=== PATIENT | female | born 1940 | race Caucasian/White ===

== ENCOUNTER 2024-06-19 00:36 | Observation (INO) ==
--- NOTE | 2024-06-19 01:04 | Emergency Department Note ---
History of Present Illness General Chief complaint: TIA Symptoms Stated complaint: FELL, SPEECH ISSUE, CONFUSED, HEADACHE RT SIDE TEM Time Seen by Provider: 06/19/24 00:48 History of Present Illness Maximum Pain Intensity: 3 This is an 83-year-old female presenting to the emergency department accompanied by family for evaluation of altered mental status. Patient is at bedside and provides most of the history. Yesterday the patient had a fall between the wall and her toilet at home. The patient did strike her head and subsequently had evaluation at [facility]. Patient reportedly had blood work, urine, CT scan, and MRI, all of which were essentially normal. The patient did have elevated blood sugar over 200 which was new. The patient has reportedly been persistently confused per family. She has been speaking to people that are not in the room, and having conversations like she is on a telephone, when she is not. Patient has not had difficulty moving arms or legs. She seems to have difficulty seeing to the left lateral visual field according to her . She has not had any chest pain, chest tightness, or shortness of breath. She is not on blood thinners. Family elected to come to this facility today as symptoms persist, and they did not get true answers yesterday. Patient is able to answer questions fully and appropriately. She rates her discomfort a 3/10. She is not eating or drinking well the past few days. Home Medications Medication Instructions Recorded Confirmed Type ascorbic acid (vitamin C) 500 mg 500 mg PO DAILY 06/19/24 06/19/24 History chewable tablet aspirin 81 mg tablet,delayed 81 mg PO DAILY 06/19/24 06/19/24 History release denosumab 60 mg/mL subcutaneous See Rx Instructions .Route .COMPLEX 06/19/24 06/19/24 History syringe furosemide 20 mg tablet 20 mg PO DAILY PRN swelling 06/19/24 06/19/24 History lisinopril 20 mg tablet 20 mg PO BID 06/19/24 06/19/24 History simvastatin 10 mg tablet 10 mg PO PM 06/19/24 06/19/24 History valacyclovir 500 mg tablet 500 mg PO BID 06/19/24 06/19/24 History Allergies Allergy/AdvReac Type Severity Reaction Status Date / Time latex Allergy Rash Verified 06/19/24 05:13 Past Med/Surg History Problem List (Updated 06/19/24 @ 20:52 by Ellis Jha PA-C) Confusion (Acute) Altered mental status (Acute) Osteoporosis Hyperlipidemia Surgical History (Updated 06/19/24 @ 03:00 by Ellis Jha PA-C) Hx of tonsillectomy S/P DIVINA-BSO History of cholecystectomy History of cataract surgery History of colonoscopy Social History Smoking Status: Never smoker Second Hand Exposure: No; Do You Dip or Chew Tobacco: No; Tobacco Cessation Education Requested by Patient: No Hx Alcohol Use: No Hx Substance Use: No Preferred Language: [place] Supervisor Required: No Beliefs That Will Affect Care: None Current Living Situation: Alone Other Information That Helps Us Care for You: No Feels Safe at Home: Yes Safety Concerns: Feels Safe At This Time Review of Systems A total of 10 systems reviewed and were otherwise negative Physical Exam Vital Signs Vital Signs - 24 hr 06/19/24 00:42 06/19/24 01:02 06/19/24 01:03 Temperature 36.4 C L Temperature Source Temporal Artery Scan Pulse Rate 80 69 69 Pulse Rate from SpO2 Sensor 69 Respiratory Rate 18 22 Respiratory Effort / Characteristics Non-Labored Spontaneous Respiratory Depth Normal Blood Pressure 128/90 152/79 H Blood Pressure [Left Arm] Blood Pressure Mean 102 123 Blood Pressure Mean [Left Arm] Pulse Oximetry 99 98 Oxygen Delivery Method Room Air Sepsis Recent Fever Within 48 Hours No Sepsis New/Unexplained Change in Mental Status No Sepsis Action Taken by Nursing No Action Required 06/19/24 02:00 06/19/24 02:30 06/19/24 02:34 Temperature Temperature Source Pulse Rate 65 77 80 Pulse Rate from SpO2 Sensor 65 77 Respiratory Rate 20 20 20 Respiratory Effort / Characteristics Respiratory Depth Blood Pressure 156/81 H 167/81 H 184/82 H Blood Pressure [Left Arm] Blood Pressure Mean 131 112 129 Blood Pressure Mean [Left Arm] Pulse Oximetry 98 98 98 Oxygen Delivery Method Sepsis Recent Fever Within 48 Hours Sepsis New/Unexplained Change in Mental Status Sepsis Action Taken by Nursing 06/19/24 02:34 06/19/24 02:34 06/19/24 02:34 Temperature Temperature Source Pulse Rate Pulse Rate from SpO2 Sensor Respiratory Rate Respiratory Effort / Characteristics Respiratory Depth Blood Pressure 184/82 H 184/82 H 184/82 H Blood Pressure [Left Arm] Blood Pressure Mean 129 129 129 Blood Pressure Mean [Left Arm] Pulse Oximetry Oxygen Delivery Method Sepsis Recent Fever Within 48 Hours Sepsis New/Unexplained Change in Mental Status Sepsis Action Taken by Nursing 06/19/24 02:36 06/19/24 03:00 06/19/24 03:02 Temperature Temperature Source Pulse Rate 74 77 Pulse Rate from SpO2 Sensor 74 77 Respiratory Rate 20 20 Respiratory Effort / Characteristics Respiratory Depth Blood Pressure 192/97 H Blood Pressure [Left Arm] 184/66 H Blood Pressure Mean 128 Blood Pressure Mean [Left Arm] 105 Pulse Oximetry 97 99 Oxygen Delivery Method Sepsis Recent Fever Within 48 Hours Sepsis New/Unexplained Change in Mental Status Sepsis Action Taken by Nursing 06/19/24 03:30 06/19/24 04:00 06/19/24 04:30 Temperature Temperature Source Pulse Rate 71 74 70 Pulse Rate from SpO2 Sensor 71 74 Respiratory Rate 18 22 20 Respiratory Effort / Characteristics Respiratory Depth Blood Pressure 180/93 H 179/90 H 170/91 H Blood Pressure [Left Arm] Blood Pressure Mean 122 119 122 Blood Pressure Mean [Left Arm] Pulse Oximetry 96 97 98 Oxygen Delivery Method Sepsis Recent Fever Within 48 Hours Sepsis New/Unexplained Change in Mental Status Sepsis Action Taken by Nursing 06/19/24 04:58 06/19/24 05:00 06/19/24 06:00 Temperature Temperature Source Pulse Rate 68 69 73 Pulse Rate from SpO2 Sensor Respiratory Rate 21 23 Respiratory Effort / Characteristics Respiratory Depth Blood Pressure 177/94 H 171/81 H Blood Pressure [Left Arm] Blood Pressure Mean 142 134 Blood Pressure Mean [Left Arm] Pulse Oximetry 96 98 Oxygen Delivery Method Sepsis Recent Fever Within 48 Hours Sepsis New/Unexplained Change in Mental Status Sepsis Action Taken by Nursing VITALS: Vitals are noted on the nurse's note and reviewed by myself. Vital signs stable. GENERAL: Well-developed, well-nourished, white female, who is in no acute distress and resting comfortably. Patient is cooperative with the examination. HEAD: Normocephalic atraumatic. EYES: Pupils equal round and reactive to light and accommodation. Conjunctivae without injection, sclerae without icterus. Extraocular movements intact. NOSE: Patent, turbinates without inflammation or discharge. MOUTH: Mucous membranes moist. Tonsils are not enlarged. Pharynx without erythema, blood, or exudate. Uvula midline. Airway patent. NECK: Supple without nuchal rigidity. No lymphadenopathy. No thyromegaly. Cervical spine is nontender. HEART: Regular rate and rhythm without murmurs gallops or rubs. LUNGS: Clear to auscultation bilaterally without wheezes, rales or rhonchi. No retractions or accessory muscle use. ABDOMEN: Positive normal bowel sounds x 4. Soft, nontender, without masses or organomegaly. No guarding or rebound tenderness. MUSCULOSKELETAL: No muscle atrophy, erythema, or edema noted. Full range of motion in all extremities. NEURO: Patient was alert and oriented to person place and time. CN II through XII grossly intact. GCS 15. Stroke scale 0. Course Administered Medications Aspirin (Aspirin 81 Mg Ectab) 81 mg PO DAILY LORELEI Stop: 07/19/24 08:59 Last Admin: 06/19/24 09:04 Dose: 81 mg Documented By: YUE Heparin Sodium (Porcine) (Heparin Sod 5,000 Unit/0.5 Ml Vial) 5,000 units SQ Q8 LORELEI Stop: 07/19/24 13:59 Last Admin: 06/19/24 13:39 Dose: 5,000 units Documented By: YUE Potassium Chloride/Sodium Chloride (Normal Saline W/20 Meq Kcl) 20 meq in 1,000 mls @ 60 mls/hr IV .[id number] ONE Stop: 06/19/24 22:55 Last Admin: 06/19/24 06:41 Dose: 60 mls/hr Documented By: ZOILA Levothyroxine Sodium (Levothyroxine Sodium 25 Mcg Tablet) 25 mcg PO DAILYBB LORELEI Stop: 07/19/24 06:29 Last Admin: 06/19/24 07:28 Dose: 25 mcg Documented By: GABRIEL Discontinued Medications Amlodipine Besylate (Amlodipine Besylate 5 Mg Tab) 2.5 mg PO NOW ONE Stop: 06/19/24 15:38 Last Admin: 06/19/24 17:02 Dose: 2.5 mg Documented By: YUE Gadobutrol (Gadobutrol 7.5ml Vial) 3.5 ml IV ONCE ONE Stop: 06/19/24 12:50 Last Admin: 06/19/24 12:49 Dose: 3.5 ml Documented By: BLAKE Sodium Chloride (Nss) 1,000 mls @ 999 mls/hr IV .Q1H1M ONE Stop: 06/19/24 02:55 Last Infusion: 06/19/24 03:05 Dose: Infused Documented By: Admin: 06/19/24 01:59 Dose: 999 mls/hr Documented By: ZOILA Ceftriaxone Sodium (Rocephin) 1,000 mg in 50 mls @ 100 mls/hr IV NOW STA Stop: 06/19/24 06:38 Last Infusion: 06/19/24 06:57 Dose: Infused Documented By: Admin: 06/19/24 06:16 Dose: 100 mls/hr Documented By: ZOILA Ioversol (Optiray 320 125ml) 120 ml IV ONCE ONE Stop: 06/19/24 02:19 Last Admin: 06/19/24 02:13 Dose: 120 ml Documented By: JESSICA Lisinopril (Lisinopril 20 Mg Tab) 20 mg PO NOW STA Stop: 06/19/24 07:39 Last Admin: 06/19/24 07:53 Dose: 20 mg Documented By: GABRIEL Valacyclovir HCl (Valacyclovir Hcl 500 Mg Tablet) 500 mg PO BID LORELEI Stop: 07/19/24 08:59 Last Admin: 06/19/24 09:04 Dose: 500 mg Documented By: YUE Medical Decision Making Differential Diagnosis The differential diagnosis includes, but is not limited to: acute intracranial bleed, meningitis, encephalitis, mass or mass effect, sinusitis, infection, tumor, headache, temporal arteritis and carbon monoxide exposure, and migraine. Laboratory Data 06/19/24 00:59 06/19/24 00:59 Lab Results 06/19/24 06/19/24 06/19/24 Range/Units 00:59 01:08 01:20 WBC 6.26 (4.8-10.8) K/ul RBC 4.46 (4.20-5.40) M/uL Hgb 12.6 (12.0-16.0) g/dl Hct 39.0 (37.0-47.0) % MCV 87.4 (80.0-100.0) fL MCH 28.3 (25.0-34.0) pg MCHC 32.3 (32.0-36.0) g/dL RDW Std Deviation 47.4 H (36.4-46.3) fL RDW Coeff of [place] 14.7 H (11.5-14.5) % Plt Count 286 (130-400) K/uL MPV 9.5 (9.4-12.4) fL Immature Gran % (Auto) 0.3 % Neut % (Auto) 61.9 % Lymph % (Auto) 21.4 % [place] % (Auto) 15.2 % Eos % (Auto) 0.6 % Baso % (Auto) 0.6 % Neut # (Auto) 3.87 (1.40-6.50) K/uL Lymph # (Auto) 1.34 (1.20-3.40) K/uL [place] # (Auto) 0.95 H (0.11-0.59) K/uL Eos # (Auto) 0.04 (0.00-0.50) K/uL Baso # (Auto) 0.04 (0.00-0.20) K/uL Immature Gran # (Auto) 0.02 (0.01-0.20) K/uL PT 10.3 (9.0-12.0) Seconds INR 0.9 (0.9-1.1) APTT 25 (21-31) Seconds PTT Ratio 0.9 Sodium 137 (136-145) mmol/L Potassium 3.8 (3.5-5.1) mmol/L Chloride 100 (98-107) mmol/L Carbon Dioxide 27 (21-32) mmol/L Anion Gap 10 (3-11) BUN 27 H (6-23) mg/dl Creatinine 1.20 (0.6-1.2) mg/dl Est Cr Clr Drug Dosing 18.1 ml/min eGFR 45.19 BUN/Creatinine Ratio 22.5 H (10-20) Glucose 90 (70-99(Fasting)) mg/dl Calcium 9.9 (8.6-10.3) mg/dl Magnesium 2.0 (1.7-2.4) mg/dl Total Bilirubin 0.5 (0.2-1.0) mg/dl AST 39 (13-39) U/L ALT 24 (7-52) U/L Alkaline Phosphatase 69 (34-104) U/L Total Creatine Kinase 830 H (26-192) U/L Troponin I High Sens 14.7 H (0-14) pg/ml Total Protein 6.9 (6.0-8.3) gm/dl Albumin 4.1 (3.4-5.0) gm/dl Globulin 2.8 (2.5-4.0) gm/dl Albumin/Globulin Ratio 1.5 (0.9-2) TSH 10.582 H (0.300-4.500) uIu/ml Free T4 0.76 (0.61-1.60) ng/dl Urine Color Urine Appearance (Clear) Urine pH (4.5-7.5) Ur Specific [place] (1.000-1.030) Urine Protein (Negative) Urine Glucose (UA) (Negative) Urine Ketones (Negative) Urine Blood (Negative) Urine Nitrite (Negative) Urine Bilirubin (Negative) Urine Urobilinogen (Negative) Ur Leukocyte Esterase (Negative) Urine WBC (Auto) (0-5) /hpf Urine RBC (Auto) (0-2) /hpf U Hyaline Cast (Auto) (0-2) /lpf U Epithel Cells (Auto) (0-2) /hpf Urine Bacteria (Auto) (None Seen) Ethyl Alcohol mg/dL < 10.0 (<10.0) mg/dl Adenovirus (PCR) Not Detected (NotDetected) B. pertussis DNA (PCR) Not Detected (NotDetected) B.parapertussis DNA PCR Not Detected (NotDetected) Lyme Disease Screen Negative (Negative) C. pneumoniae DNA (PCR) Not Detected (NotDetected) Coronavirus OC43 (PCR) Not Detected (NotDetected) Coronavirus HKU1 (PCR) Not Detected (NotDetected) Coronavirus 229E (PCR) Not Detected (NotDetected) SARS-CoV-2 (PCR) Not Detected (NotDetected) Coronavirus NL63 (PCR) Not Detected (NotDetected) Human Metapneumovir PCR Not Detected (NotDetected) Influenza Type A (PCR) Not Detected (NotDetected) Influenza Type B (PCR) Not Detected (NotDetected) M. pneumoniae (PCR) Not Detected (NotDetected) Parainfluenza 1 (PCR) Not Detected (NotDetected) Parainfluenza 2 (PCR) Not Detected (NotDetected) Parainfluenza 3 (PCR) Not Detected (NotDetected) Parainfluenza 4 (PCR) Not Detected (NotDetected) RSV (PCR) Not Detected (NotDetected) Entero/Rhino (PCR) Not Detected (NotDetected) 06/19/24 Range/Units 02:25 WBC (4.8-10.8) K/ul RBC (4.20-5.40) M/uL Hgb (12.0-16.0) g/dl Hct (37.0-47.0) % MCV (80.0-100.0) fL MCH (25.0-34.0) pg MCHC (32.0-36.0) g/dL RDW Std Deviation (36.4-46.3) fL RDW Coeff of [place] (11.5-14.5) % Plt Count (130-400) K/uL MPV (9.4-12.4) fL Immature Gran % (Auto) % Neut % (Auto) % Lymph % (Auto) % [place] % (Auto) % Eos % (Auto) % Baso % (Auto) % Neut # (Auto) (1.40-6.50) K/uL Lymph # (Auto) (1.20-3.40) K/uL [place] # (Auto) (0.11-0.59) K/uL Eos # (Auto) (0.00-0.50) K/uL Baso # (Auto) (0.00-0.20) K/uL Immature Gran # (Auto) (0.01-0.20) K/uL PT (9.0-12.0) Seconds INR (0.9-1.1) APTT (21-31) Seconds PTT Ratio Sodium (136-145) mmol/L Potassium (3.5-5.1) mmol/L Chloride (98-107) mmol/L Carbon Dioxide (21-32) mmol/L Anion Gap (3-11) BUN (6-23) mg/dl Creatinine (0.6-1.2) mg/dl Est Cr Clr Drug Dosing ml/min eGFR BUN/Creatinine Ratio (10-20) Glucose (70-99(Fasting)) mg/dl Calcium (8.6-10.3) mg/dl Magnesium (1.7-2.4) mg/dl Total Bilirubin (0.2-1.0) mg/dl AST (13-39) U/L ALT (7-52) U/L Alkaline Phosphatase (34-104) U/L Total Creatine Kinase (26-192) U/L Troponin I High Sens (0-14) pg/ml Total Protein (6.0-8.3) gm/dl Albumin (3.4-5.0) gm/dl Globulin (2.5-4.0) gm/dl Albumin/Globulin Ratio (0.9-2) TSH (0.300-4.500) uIu/ml Free T4 (0.61-1.60) ng/dl Urine Color Yellow Urine Appearance Clear (Clear) Urine pH 5.5 (4.5-7.5) Ur Specific [place] 1.037 H (1.000-1.030) Urine Protein Trace H (Negative) Urine Glucose (UA) Negative (Negative) Urine Ketones 1+ H (Negative) Urine Blood Negative (Negative) Urine Nitrite Negative (Negative) Urine Bilirubin Negative (Negative) Urine Urobilinogen Negative (Negative) Ur Leukocyte Esterase 1+ H (Negative) Urine WBC (Auto) 11-20 H (0-5) /hpf Urine RBC (Auto) 0-2 (0-2) /hpf U Hyaline Cast (Auto) 11-20 H (0-2) /lpf U Epithel Cells (Auto) 0-2 (0-2) /hpf Urine Bacteria (Auto) None Seen (None Seen) Ethyl Alcohol mg/dL (<10.0) mg/dl Adenovirus (PCR) (NotDetected) B. pertussis DNA (PCR) (NotDetected) B.parapertussis DNA PCR (NotDetected) Lyme Disease Screen (Negative) C. pneumoniae DNA (PCR) (NotDetected) Coronavirus OC43 (PCR) (NotDetected) Coronavirus HKU1 (PCR) (NotDetected) Coronavirus 229E (PCR) (NotDetected) SARS-CoV-2 (PCR) (NotDetected) Coronavirus NL63 (PCR) (NotDetected) Human Metapneumovir PCR (NotDetected) Influenza Type A (PCR) (NotDetected) Influenza Type B (PCR) (NotDetected) M. pneumoniae (PCR) (NotDetected) Parainfluenza 1 (PCR) (NotDetected) Parainfluenza 2 (PCR) (NotDetected) Parainfluenza 3 (PCR) (NotDetected) Parainfluenza 4 (PCR) (NotDetected) RSV (PCR) (NotDetected) Entero/Rhino (PCR) (NotDetected) Imaging Data Radiologist's Impression: Head CT 06/19/24 00:59 EXAM: CT head/brain wo con CLINICAL HISTORY: fall, headache , confusion , difficulty speaking TECHNIQUE: An axial non-contrast CT scan of the brain was performed from the skull base to the high parietal region. One of the following dose reduction techniques was utilized for this exam: Automated exposure control, adjustment of the mA and/or kV according to patient size, and use of iterative reconstruction. COMPARISON: None. FINDINGS: Prominent ventricular system and extra-axial CSF spaces are suggestive of age-related involutional changes. There are scattered periventricular hypodensities of chronic microvascular ischemic changes. The duong-white matter differentiation is preserved. No space-occupying lesions. No midline shifts or deformity. No intracerebral or extra axial hematoma. Unremarkable CT appearance of the posterior fossa structures namely the cerebellar hemispheres, brainstem, and cerebellar peduncles. The IACs are unremarkable. The cerebello-pontine angles are clear. The pituitary gland, the pineal gland, and the optic chiasm is unremarkable. The osseous structures in the skull base are unremarkable. No definite calvarium fractures. Scanned paranasal sinuses show bilateral maxillary sinuses are clear. IMPRESSION: 1. No evidence of established infarction, or intracranial or extracranial hemorrhage. 2. Age-related brain involutional changes. 3. Chronic microvascular ischemic changes. 4. Early changes of a stroke may not be detected on a CT scan. If strong clinical suspicion of stroke then suggest MRI with diffusion-weighted imaging. Electronically signed by Laine Vasquez 06-19-2024 03:08 AM Head CTA 06/19/24 00:59 EXAM: CT angio head w con CLINICAL HISTORY: fall, headache , confusion , difficulty speaking , 120 ml optiray 320 TECHNIQUE: Axial CT angiography of the head was performed with IV contrast and sagittal and coronal reconstructions. One of these 3D techniques was utilized: Maximum Intensity Pixel (MIP), 3D Reconstructed Images, Volume Rendered Images, Surface Shaded Rendering. One of the following dose reduction techniques were utilized for this exam: Automated exposure control, adjustment of the mA and/or kV according to patient size, and use of iterative reconstruction. 120 ml optiray 320 was given as an IV contrast. COMPARISON: None. FINDINGS: Intracranial Arteries: Few eccentric non-stenotic calcified plaques are noted in the cavernous segments of both internal carotid arteries bilaterally. Otherwise, the intracranial portions of the internal carotid arteries, anterior cerebral arteries, middle cerebral arteries, posterior cerebral arteries, basilar artery, and vertebral arteries are well-opacified. Persistent origin of the posterior cerebral arteries (variant). No evidence of aneurysm, stenosis, or occlusion. [place]: The [place] is complete. Normal caliber of the communicating arteries. No vascular malformations or aneurysms. Venous Structures: Normal opacification of the major dural venous sinuses. No evidence of venous sinus thrombosis. IMPRESSION: Few eccentric non-stenotic calcified plaques are noted in the cavernous segments of both internal carotid arteries bilaterally. Otherwise, unremarkable study. No evidence of significant vascular abnormalities. Electronically signed by Laine Vasquez 06-19-2024 03:09 AM Neck CTA 06/19/24 00:59 EXAM: CT angio neck with con CLINICAL HISTORY: fall, headache , confusion , difficulty speaking , 120 ml optiray 320 TECHNIQUE: Contrast-enhanced thin slice CT angiography scan of the carotid vessels/ neck was performed with 120 ml optiray 320/ml intravenous contrast. Contiguous axial images were obtained. Reformatted coronal and sagittal images were also reviewed. One of the following dose reduction techniques was utilized for this exam.Automated exposure control, adjustment of the mA and/or kV according to patient size, and use of iterative reconstruction. One of these 3D techniques was utilized: Maximum Intensity Pixel (MIP), 3D Reconstructed Images, Volume Rendered Images, Surface Shaded Rendering. COMPARISON: None. FINDINGS: Mild diffuse atherosclerotic changes are evidenced with intimal thickening and scattered calcified atheromatous plaques. Patent aortic arch and its main branches with no tight stenotic/ occlusive lesions. Eccentric, predominantly calcific atheromatous changes are seen in bilateral carotid bulbs with extension to the proximal cervical internal carotid artery on the left side, causing about 20-30% stenosis. The rest of the common carotid, internal, and external carotid arteries are well opacified with no significant stenotic or occlusive lesions. Few calcified atheromatous plaques are seen in the aortic arch and proximal segments of bilateral subclavian arteries close to the origin of the vertebral arteries, not causing any significant luminal stenosis. No aneurysmal changes or dissections. No vascular malformations. Vertebral arteries are well opacified. Slightly hypoplastic left vertebral artery. Jugular veins are well opacified. Dominant right one. Scanned lung apices show apical fibrosis/scarring. Thyroid gland small hypodense nodules were seen. Need sonographic correlation. IMPRESSION: 1. Mild diffuse atherosclerotic changes. 2. Eccentric, predominantly calcific atheromatous changes are seen in bilateral carotid bulbs with extension to the proximal cervical internal carotid artery on the left side, causing about 20-30% stenosis. Electronically signed by Laine Vasquez 06-19-2024 03:12 AM MDM Narrative Physical exam and history were performed. Nursing notes, EMR, and Medication List were personally reviewed. No social concerns were identified as barriers to patients care. Patient appears to have several symptoms bring her to the ER. Many of these do seem strokelike, however by history the patient has had CTs and MRI in the past 24 hours. Case management and statistical secretary were involved in care, and records were requested from [facility]. On presentation the patient does not appear toxic. She is answering questions appropriately. Stroke scale 0. IV access was established and labs were obtained. Based on patient's symptoms CT scans were performed. Case was discussed with my attending who remained involved in care and decision making. Patient's blood work is as above and was reviewed. She does not have a significantly elevated white blood cell count, gross anemia, bandemia, or significant electrolyte imbalance. CK is elevated at 830 which may represent some element of rhabdo. Troponin is also slightly elevated at 14.7. TSH is 10.5. Urine without distinct evidence of infection and cultures pending. Bio fire and alcohol are both negative. CT scans were performed and reviewed by myself and radiology showing no acute process to account for the patient's symptoms. While the patient was being evaluated in the ER she had 3 distinct episodes where she may have had absent seizure-like activity. The patient essentially had 10-second periods where she would stop talking and look off into the distance. She would slowly recover from this, and return to normal. This does seem to correlate with what her has been experiencing as well. Overall the patient does not appear well for discharge home. Her symptoms are quite atypical and likely require further evaluation. I did ultimately get [facility] records, which essentially reflects what was stated by the patient's . These were added to the chart. The patient requires escalation of care, and the case was discussed with the on-call hospitalist. Please see their dictation for further patient course, plan, and disposition. The chart was completed utilizing [employer] Speech Voice Recognition Software. Grammatical errors, random word insertions, pronoun errors, and incomplete sentences are an occasional consequence of this system due to software limitations, ambient noise, and hardware issues. Any formal questions or concerns about the content, text, or information contained within the body of this dictation should be directly addressed to the provider for clarification. Impression & Plan Altered mental status, Confusion Discharge Plan Visit Data Chief Complaint: TIA Symptoms Stated Complaint: FELL, SPEECH ISSUE, CONFUSED, HEADACHE RT SIDE TEM ED Provider: Tanika Tyler ED Midlevel Provider: Ellis Jha Discharge Problem: Altered mental status, Confusion Patient Disposition: Admitted As Inpatient Discharge Instructions Interventions: ED Discharge Assessment Last Done: 06/19/24 08:18
[2024-06-19 01:21] LABS: Basophils # (auto) 0.04 K/uL (0.00-0.20); Basophils % (auto) 0.6 %; Eosinophils # (auto) 0.04 K/uL (0.00-0.50); Eosinophils % (auto) 0.6 %; Hemoglobin 12.6 g/dl (12.0-16.0); Immature Granulocytes # (auto) 0.02 K/uL (0.01-0.20); Immature Granulocytes % (auto) 0.3 %; Lymphocytes # (auto) 1.34 K/uL (1.20-3.40); Lymphocytes % (auto) 21.4 %; Mean Corpuscular Hemoglobin 28.3 pg (25.0-34.0); Mean Corpuscular Hgb Conc 32.3 g/dL (32.0-36.0); Mean Corpuscular Volume 87.4 fL (80.0-100.0); Mean Platelet Volume 9.5 fL (9.4-12.4); Monocytes # (auto) 0.95 K/uL (0.11-0.59); Monocytes % (auto) 15.2 %; Neutrophils # (auto) 3.87 K/uL (1.40-6.50); Neutrophils % (auto) 61.9 %; Platelet Count 286 K/uL (130-400); RDW Coefficient of Variation 14.7 % (11.5-14.5); RDW Standard Deviation 47.4 fL (36.4-46.3); Red Blood Count 4.46 M/uL (4.20-5.40); White Blood Count 6.26 K/ul (4.8-10.8)
[2024-06-19 01:44] LABS: Albumin Globulin Ratio 1.5 (0.9-2); Albumin Level 4.1 gm/dl (3.4-5.0); BUN Creatinine Ratio 22.5 (10-20); Bilirubin,Total 0.5 mg/dl (0.2-1.0); Calcium 9.9 mg/dl (8.6-10.3); Creatinine Clr Calc Pharmacy 18.1 ml/min; Globulin 2.8 gm/dl (2.5-4.0); Potassium 3.8 mmol/L (3.5-5.1); Total Protein 6.9 gm/dl (6.0-8.3)
[2024-06-19 01:48] LABS: INR 0.9 (0.9-1.1); Partial Thromboplastin Ratio 0.9; Partial Thromboplastin Time 25 Seconds (21-31); Prothrombin Time 10.3 Seconds (9.0-12.0)
[2024-06-19 01:51] LABS: Troponin I High Sensitivity 14.7 pg/ml (0-14)
[2024-06-19] MEDS: SODIUM CHLORIDE 0.9% 1,000 ML IV ONE (01:59)
[2024-06-19 02:01] LABS: Thyroid Stimulating Hormone 10.582 uIu/ml (0.300-4.500)
[2024-06-19] MEDS: OPTIRAY 320 125ml IV ONE (02:13)
[2024-06-19 02:22] LABS: Adenovirus PCR Not Detected (NotDetected); Bordetella parapertussis PCR Not Detected (NotDetected); Bordetella pertussis PCR Not Detected (NotDetected); Chlamydia pneumoniae PCR Not Detected (NotDetected); Coronavirus 229E PCR Not Detected (NotDetected); Coronavirus CoV-2 (COVID19)PCR Not Detected (NotDetected); Coronavirus HKU1 PCR Not Detected (NotDetected); Coronavirus NL63 PCR Not Detected (NotDetected); Coronavirus OC43PCR Not Detected (NotDetected); Human Metapneumovirus PCR Not Detected (NotDetected); Influenza A PCR Not Detected (NotDetected); Influenza B PCR Not Detected (NotDetected); Mycoplasma pneumoniae PCR Not Detected (NotDetected); Parainfluenza Virus 1 PCR Not Detected (NotDetected); Parainfluenza Virus 2 PCR Not Detected (NotDetected); Parainfluenza Virus 3 PCR Not Detected (NotDetected); Parainfluenza Virus 4 PCR Not Detected (NotDetected); Respiratory Syncytial VirusPCR Not Detected (NotDetected); Rhinovirus/Enterovirus PCR Not Detected (NotDetected)
[2024-06-19 02:36] LABS: T4 Free Thyroxine 0.76 ng/dl (0.61-1.60)
--- NOTE | 2024-06-19 03:08 | CT Scan Report ---
EXAM: CT head/brain wo con CLINICAL HISTORY: fall, headache , confusion , difficulty speaking TECHNIQUE: An axial non-contrast CT scan of the brain was performed from the skull base to the high parietal region. One of the following dose reduction techniques was utilized for this exam: Automated exposure control, adjustment of the mA and/or kV according to patient size, and use of iterative reconstruction. COMPARISON: None. FINDINGS: Prominent ventricular system and extra-axial CSF spaces are suggestive of age-related involutional changes. There are scattered periventricular hypodensities of chronic microvascular ischemic changes. The duong-white matter differentiation is preserved. No space-occupying lesions. No midline shifts or deformity. No intracerebral or extra axial hematoma. Unremarkable CT appearance of the posterior fossa structures namely the cerebellar hemispheres, brainstem, and cerebellar peduncles. The IACs are unremarkable. The cerebello-pontine angles are clear. The pituitary gland, the pineal gland, and the optic chiasm is unremarkable. The osseous structures in the skull base are unremarkable. No definite calvarium fractures. Scanned paranasal sinuses show bilateral maxillary sinuses are clear. IMPRESSION: 1. No evidence of established infarction, or intracranial or extracranial hemorrhage. 2. Age-related brain involutional changes. 3. Chronic microvascular ischemic changes. 4. Early changes of a stroke may not be detected on a CT scan. If strong clinical suspicion of stroke then suggest MRI with diffusion-weighted imaging. Electronically signed by Laine Vasquez 06-19-2024 03:08 AM
--- NOTE | 2024-06-19 03:10 | CT Scan Report ---
EXAM: CT angio head w con CLINICAL HISTORY: fall, headache , confusion , difficulty speaking , 120 ml optiray 320 TECHNIQUE: Axial CT angiography of the head was performed with IV contrast and sagittal and coronal reconstructions. One of these 3D techniques was utilized: Maximum Intensity Pixel (MIP), 3D Reconstructed Images, Volume Rendered Images, Surface Shaded Rendering. One of the following dose reduction techniques were utilized for this exam: Automated exposure control, adjustment of the mA and/or kV according to patient size, and use of iterative reconstruction. 120 ml optiray 320 was given as an IV contrast. COMPARISON: None. FINDINGS: Intracranial Arteries: Few eccentric non-stenotic calcified plaques are noted in the cavernous segments of both internal carotid arteries bilaterally. Otherwise, the intracranial portions of the internal carotid arteries, anterior cerebral arteries, middle cerebral arteries, posterior cerebral arteries, basilar artery, and vertebral arteries are well-opacified. Persistent origin of the posterior cerebral arteries (variant). No evidence of aneurysm, stenosis, or occlusion. [place]: The [place] is complete. Normal caliber of the communicating arteries. No vascular malformations or aneurysms. Venous Structures: Normal opacification of the major dural venous sinuses. No evidence of venous sinus thrombosis. IMPRESSION: Few eccentric non-stenotic calcified plaques are noted in the cavernous segments of both internal carotid arteries bilaterally. Otherwise, unremarkable study. No evidence of significant vascular abnormalities. Electronically signed by Laine Vasquez 06-19-2024 03:09 AM
--- NOTE | 2024-06-19 03:12 | CT Scan Report ---
EXAM: CT angio neck with con CLINICAL HISTORY: fall, headache , confusion , difficulty speaking , 120 ml optiray 320 TECHNIQUE: Contrast-enhanced thin slice CT angiography scan of the carotid vessels/ neck was performed with 120 ml optiray 320/ml intravenous contrast. Contiguous axial images were obtained. Reformatted coronal and sagittal images were also reviewed. One of the following dose reduction techniques was utilized for this exam.Automated exposure control, adjustment of the mA and/or kV according to patient size, and use of iterative reconstruction. One of these 3D techniques was utilized: Maximum Intensity Pixel (MIP), 3D Reconstructed Images, Volume Rendered Images, Surface Shaded Rendering. COMPARISON: None. FINDINGS: Mild diffuse atherosclerotic changes are evidenced with intimal thickening and scattered calcified atheromatous plaques. Patent aortic arch and its main branches with no tight stenotic/ occlusive lesions. Eccentric, predominantly calcific atheromatous changes are seen in bilateral carotid bulbs with extension to the proximal cervical internal carotid artery on the left side, causing about 20-30% stenosis. The rest of the common carotid, internal, and external carotid arteries are well opacified with no significant stenotic or occlusive lesions. Few calcified atheromatous plaques are seen in the aortic arch and proximal segments of bilateral subclavian arteries close to the origin of the vertebral arteries, not causing any significant luminal stenosis. No aneurysmal changes or dissections. No vascular malformations. Vertebral arteries are well opacified. Slightly hypoplastic left vertebral artery. Jugular veins are well opacified. Dominant right one. Scanned lung apices show apical fibrosis/scarring. Thyroid gland small hypodense nodules were seen. Need sonographic correlation. IMPRESSION: 1. Mild diffuse atherosclerotic changes. 2. Eccentric, predominantly calcific atheromatous changes are seen in bilateral carotid bulbs with extension to the proximal cervical internal carotid artery on the left side, causing about 20-30% stenosis. Electronically signed by Laine Vasquez 06-19-2024 03:12 AM
[2024-06-19 03:33] LABS: Appearance Urine Clear (Clear); Bacteria Urine Automated None Seen (None Seen); Bilirubin Urine Negative (Negative); Blood Urine Negative (Negative); Color Urine Yellow; Epithelial Cell Urine Auto 0-2 /hpf (0-2); Glucose Urine UA Negative (Negative); Ketones Urine 1+ (Negative); Leukocyte Esterase Urine 1+ (Negative); Nitrite Urine Negative (Negative); Protein Urine Trace (Negative); RBC Urine Automated 0-2 /hpf (0-2); Specific Gravity Urine 1.037 (1.000-1.030); Urobilinogen Urine Negative (Negative); pH Urine 5.5 (4.5-7.5)
--- NOTE | 2024-06-19 04:31 | Emergency Department Note ---
ED Visit Note I was consulted by the Advanced Practice Provider. I personally made/approved the management plan and take responsibility for the patient management. I performed a substantive portion of the visit. This includes the aspects of: Personally seeing the patient -MDM we reviewed the patient's records from [facility]. Patient will require admission to the hospital for evaluation by neurology. .
--- NOTE | 2024-06-19 06:03 | History & Physical Report ---
Date of Service June 19, 2024 Assessment & Plan (1) Altered mental status: Plan: Episodic encephalopathy Multifactorial ? Possible complicated UTI, no sepsis for now ? 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 Seizures Medical telemetry Urine CS, ceftriaxone Continue lisinopril, add amlodipine to regimen if BP still uncontrolled EEG, seizure precautions, Ativan as needed for active seizures Neurology consult Re: Left homonymous hemianopsia, episodic blank stares Defer need to repeat brain MRI to Neurology service Monitor CPK response to IVF, hold statin for now until repeat obtained Check lipid profile Initiate levothyroxine for subclinical hypothyroidism, TSH noted to be greater than 10, recheck outpatient TSH after 6 weeks DVT prophylaxis. Heparin subcu DNR Patient partner requesting updates providers. Mr. Jaime Coyne, contact #[phone]. Text document was generated using [employer] voice recognition software. It may contain grammatical or spelling errors. Kindly contact undersigned for clarification of any documentation item in question. History of Present Illness Chief Complaint: Not well Primary Care Provider: Favian Lopez MD History obtained from patient, family, and records. Medical history significant for hypertension, hyperlipidemia, PVD, recurrent shingles on chronic suppression Rx, osteoporosis. Patient not feeling well since last week. Feeling tired. Achy right-sided headache symptoms. Denies chest pain, SOB, cough symptoms, abdominal pain, dysuria symptoms. No unusual weight loss. Patient noted to be acting strangely 2 days ago by partner. Slow to respond to questions over the phone. Patient moving differently at home as per partner. Unwitnessed syncopal event 2 days ago. Patient just felt like she was going to pass out prior to episode. Small bleeding wound on the chin. Patient partner rushed to find her somewhat staring blankly. No tongue biting or incontinence symptoms. Patient denies chest pain, SOB. Overnight confinement at at [facility] from 06/17-2023. Patient partner noticed patient not seeing well on the left side of her left eye. Vision on the left eye has not always been good due to shingles affecting the left side of her face as per patient. Left visual field cut, left-sided homonymous hemianopsia on exam as per provider note. Unremarkable blood work except for glucose of 190. Normal ESR. Orthostatic vitals negative. Patient admitted for syncope/stroke workup. CT head: No acute intracranial abnormality identified. Chronic white matter changes are nonspecific, stable, common for age. Mild volume loss. Incidental note of empty sella Intracranial calcific plaque carotid circulation, moderate plaque burden. CT cervical spine: No acute compression deformity or fracture of the spine. No gross malalignment to suggest ligamentous injury. Degenerative spondylolisthesis C4-C5. CT angio head/neck: Widely patent intracranial circulation with persistent bilateral circulation, normal variant, and mild-moderate plaque burden in the carotid segments without stenosis. Patent cervical circulation without hemodynamic stenosis. Plaque at carotid bifurcations bilaterally, approximately 25% stenosis left ICA, 30% stenosis right ECA without other stenosis evident. MRI brain with and without contrast: No sign of infarction or mass lesion. Cerebral atrophy and chronic small vessel ischemic disease TTE EF 60 to 65%, no valvular heart disease, no regional wall abnormalities. No further syncopal events during hospital course as per discharge summary. Patient with significant functional and ambulatory deficits related to visual field cut as per PT OT eval. Patient refused SNF/inpatient rehab. Patient subsequently discharged home. Patient instructed to continue home aspirin and statin Rx and follow-up with PCP in 1 week to evaluate visual field cut as per discharge note. Symptoms somewhat worse at home as per partner. Patient still not well. Patient with hesitation on moving around. 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 Left handed patient attempting to scoop food from a bowl with her left hand past the bowl. Later last night, patient seemed like she was talking to a friend on the phone without an actual phone at hand. Persistent right-sided headache. Patient still feels weak all over. Patient denies chest pain, SOB, abdominal/flank pain, hematuria. Medical History as above Surgical History : Cataract surgeries, breast mass excision, cholecystectomy, TAHBSO, BTL, tonsillectomy/adenoidectomy, D&C Family History : DM, heart disease Personal/Social history : Non-smoker, no EtOH intake, retired budget record clerk Allergies Allergy/AdvReac Type Severity Reaction Status Date / Time latex Allergy Rash Verified 06/19/24 05:13 Home Medications Medication Instructions Recorded Confirmed Type ascorbic acid (vitamin C) 500 mg 500 mg PO DAILY 06/19/24 06/19/24 History chewable tablet aspirin 81 mg tablet,delayed 81 mg PO DAILY 06/19/24 06/19/24 History release denosumab 60 mg/mL subcutaneous See Rx Instructions .Route .COMPLEX 06/19/24 06/19/24 History syringe furosemide 20 mg tablet 20 mg PO DAILY PRN swelling 06/19/24 06/19/24 History lisinopril 20 mg tablet 20 mg PO BID 06/19/24 06/19/24 History simvastatin 10 mg tablet 10 mg PO PM 06/19/24 06/19/24 History valacyclovir 500 mg tablet 500 mg PO BID 06/19/24 06/19/24 History Past Med/Surg History Problem List (Updated 06/19/24 @ 07:13 by Moe Eugene MD) Altered mental status Osteoporosis Hyperlipidemia Surgical History (Updated 06/19/24 @ 03:00 by Ellis Jha PA-C) Hx of tonsillectomy S/P DIVINA-BSO History of cholecystectomy History of cataract surgery History of colonoscopy Social History Smoking Status: Never smoker Preferred Language: Jordanian Feels Safe at Home: Yes Review of Systems Review of Systems: As per HPI, all other systems reviewed and negative Physical Exam Physical Exam: GENERAL: Comfortable, pleasant, no respiratory distress SKIN: Normal color, warm HEENT: [place] palpebral conjunctivae, no ptosis, dry buccal mucosa NECK : Supple, no tenderness CHEST : CTA, no tenderness HEART : RRR, no obvious murmurs ABDOMEN: Some distention, nontender EXTREMITIES : No LE swelling/tenderness, no other conspicuous deformities noted NEUROLOGIC : Coherent, difficulty on counting fingers on left temporal side on confrontation testing (some degree of inattention noted during exam), no facial asymmetry, MMTS BUE/BLE 4/5, gait and stance not assessed Results & Data Results & Data Vital Signs (Past 12 Hours) Vital Signs Temp Pulse Resp BP BP Pulse Ox O2 Del Method 06/19/24 05:00 69 21 177/94 H 96 06/19/24 04:58 68 06/19/24 04:30 70 20 170/91 H 98 06/19/24 04:00 74 22 179/90 H 97 06/19/24 03:30 71 18 180/93 H 96 06/19/24 03:02 184/66 H 06/19/24 03:00 77 20 192/97 H 99 06/19/24 02:36 74 20 97 06/19/24 02:34 184/82 H 06/19/24 02:34 184/82 H 06/19/24 02:34 184/82 H 06/19/24 02:34 80 20 184/82 H 98 06/19/24 02:30 77 20 167/81 H 98 06/19/24 02:00 65 20 156/81 H 98 06/19/24 01:03 69 06/19/24 01:02 69 22 152/79 H 98 06/19/24 00:42 36.4 C L 80 18 128/90 99 Room Air Laboratory Results Laboratory Results WBC 6.26 K/ul (4.8-10.8) 06/19/24 00:59 RBC 4.46 M/uL (4.20-5.40) 06/19/24 00:59 Hgb 12.6 g/dl (12.0-16.0) 06/19/24 00:59 Hct 39.0 % (37.0-47.0) 06/19/24 00:59 MCV 87.4 fL (80.0-100.0) 06/19/24 00:59 MCH 28.3 pg (25.0-34.0) 06/19/24 00:59 MCHC 32.3 g/dL (32.0-36.0) 06/19/24 00:59 RDW Std Deviation 47.4 fL (36.4-46.3) H 06/19/24 00:59 RDW Coeff of [place] 14.7 % (11.5-14.5) H 06/19/24 00:59 Plt Count 286 K/uL (130-400) 06/19/24 00:59 MPV 9.5 fL (9.4-12.4) 06/19/24 00:59 Immature Gran % (Auto) 0.3 % 06/19/24 00:59 Neut % (Auto) 61.9 % 06/19/24 00:59 Lymph % (Auto) 21.4 % 06/19/24 00:59 [place] % (Auto) 15.2 % 06/19/24 00:59 Eos % (Auto) 0.6 % 06/19/24 00:59 Baso % (Auto) 0.6 % 06/19/24 00:59 Neut # (Auto) 3.87 K/uL (1.40-6.50) 06/19/24 00:59 Lymph # (Auto) 1.34 K/uL (1.20-3.40) 06/19/24 00:59 [place] # (Auto) 0.95 K/uL (0.11-0.59) H 06/19/24 00:59 Eos # (Auto) 0.04 K/uL (0.00-0.50) 06/19/24 00:59 Baso # (Auto) 0.04 K/uL (0.00-0.20) 06/19/24 00:59 Immature Gran # (Auto) 0.02 K/uL (0.01-0.20) 06/19/24 00:59 PT 10.3 Seconds (9.0-12.0) 06/19/24 00:59 INR 0.9 (0.9-1.1) 06/19/24 00:59 APTT 25 Seconds (21-31) 06/19/24 00:59 PTT Ratio 0.9 06/19/24 00:59 Sodium 137 mmol/L (136-145) 06/19/24 00:59 Potassium 3.8 mmol/L (3.5-5.1) 06/19/24 00:59 Chloride 100 mmol/L (98-107) 06/19/24 00:59 Carbon Dioxide 27 mmol/L (21-32) 06/19/24 00:59 Anion Gap 10 (3-11) 06/19/24 00:59 BUN 27 mg/dl (6-23) H 06/19/24 00:59 Creatinine 1.20 mg/dl (0.6-1.2) 06/19/24 00:59 Est Cr Clr Drug Dosing 18.1 ml/min 06/19/24 00:59 eGFR 45.19 06/19/24 00:59 BUN/Creatinine Ratio 22.5 (10-20) H 06/19/24 00:59 Glucose 90 mg/dl (70-99(Fasting)) 06/19/24 00:59 Calcium 9.9 mg/dl (8.6-10.3) 06/19/24 00:59 Magnesium 2.0 mg/dl (1.7-2.4) 06/19/24 00:59 Total Bilirubin 0.5 mg/dl (0.2-1.0) 06/19/24 00:59 AST 39 U/L (13-39) 06/19/24 00:59 ALT 24 U/L (7-52) 06/19/24 00:59 Alkaline Phosphatase 69 U/L (34-104) 06/19/24 00:59 Total Creatine Kinase 830 U/L (26-192) H 06/19/24 00:59 Troponin I High Sens 14.7 pg/ml (0-14) H 06/19/24 00:59 Total Protein 6.9 gm/dl (6.0-8.3) 06/19/24 00:59 Albumin 4.1 gm/dl (3.4-5.0) 06/19/24 00:59 Globulin 2.8 gm/dl (2.5-4.0) 06/19/24 00:59 Albumin/Globulin Ratio 1.5 (0.9-2) 06/19/24 00:59 TSH 10.582 uIu/ml (0.300-4.500) H 06/19/24 00:59 Free T4 0.76 ng/dl (0.61-1.60) 06/19/24 00:59 Urine Color Yellow 06/19/24 02:25 Urine Appearance Clear (Clear) 06/19/24 02:25 Urine pH 5.5 (4.5-7.5) 06/19/24 02:25 Ur Specific [place] 1.037 (1.000-1.030) H 06/19/24 02:25 Urine Protein Trace (Negative) H 06/19/24 02:25 Urine Glucose (UA) Negative (Negative) 06/19/24 02:25 Urine Ketones 1+ (Negative) H 06/19/24 02:25 Urine Blood Negative (Negative) 06/19/24 02:25 Urine Nitrite Negative (Negative) 06/19/24 02:25 Urine Bilirubin Negative (Negative) 06/19/24 02:25 Urine Urobilinogen Negative (Negative) 06/19/24 02:25 Ur Leukocyte Esterase 1+ (Negative) H 06/19/24 02:25 Urine WBC (Auto) 11-20 /hpf (0-5) H 06/19/24 02:25 Urine RBC (Auto) 0-2 /hpf (0-2) 06/19/24 02:25 U Hyaline Cast (Auto) 11-20 /lpf (0-2) H 06/19/24 02:25 U Epithel Cells (Auto) 0-2 /hpf (0-2) 06/19/24 02:25 Urine Bacteria (Auto) None Seen (None Seen) 06/19/24 02:25 Ethyl Alcohol mg/dL < 10.0 mg/dl (<10.0) 06/19/24 00:59 Adenovirus (PCR) Not Detected (NotDetected) 06/19/24 01:08 B. pertussis DNA (PCR) Not Detected (NotDetected) 06/19/24 01:08 B.parapertussis DNA PCR Not Detected (NotDetected) 06/19/24 01:08 Lyme Disease Screen Negative (Negative) 06/19/24 01:20 C. pneumoniae DNA (PCR) Not Detected (NotDetected) 06/19/24 01:08 Coronavirus OC43 (PCR) Not Detected (NotDetected) 06/19/24 01:08 Coronavirus HKU1 (PCR) Not Detected (NotDetected) 06/19/24 01:08 Coronavirus 229E (PCR) Not Detected (NotDetected) 06/19/24 01:08 SARS-CoV-2 (PCR) Not Detected (NotDetected) 06/19/24 01:08 Coronavirus NL63 (PCR) Not Detected (NotDetected) 06/19/24 01:08 Human Metapneumovir PCR Not Detected (NotDetected) 06/19/24 01:08 Influenza Type A (PCR) Not Detected (NotDetected) 06/19/24 01:08 Influenza Type B (PCR) Not Detected (NotDetected) 06/19/24 01:08 M. pneumoniae (PCR) Not Detected (NotDetected) 06/19/24 01:08 Parainfluenza 1 (PCR) Not Detected (NotDetected) 06/19/24 01:08 Parainfluenza 2 (PCR) Not Detected (NotDetected) 06/19/24 01:08 Parainfluenza 3 (PCR) Not Detected (NotDetected) 06/19/24 01:08 Parainfluenza 4 (PCR) Not Detected (NotDetected) 06/19/24 01:08 RSV (PCR) Not Detected (NotDetected) 06/19/24 01:08 Entero/Rhino (PCR) Not Detected (NotDetected) 06/19/24 01:[address] 06/19/24 00:59 EXAM: CT head/brain wo con CLINICAL HISTORY: fall, headache , confusion , difficulty speaking TECHNIQUE: An axial non-contrast CT scan of the brain was performed from the skull base to the high parietal region. One of the following dose reduction techniques was utilized for this exam: Automated exposure control, adjustment of the mA and/or kV according to patient size, and use of iterative reconstruction. COMPARISON: None. FINDINGS: Prominent ventricular system and extra-axial CSF spaces are suggestive of age-related involutional changes. There are scattered periventricular hypodensities of chronic microvascular ischemic changes. The duong-white matter differentiation is preserved. No space-occupying lesions. No midline shifts or deformity. No intracerebral or extra axial hematoma. Unremarkable CT appearance of the posterior fossa structures namely the cerebellar hemispheres, brainstem, and cerebellar peduncles. The IACs are unremarkable. The cerebello-pontine angles are clear. The pituitary gland, the pineal gland, and the optic chiasm is unremarkable. The osseous structures in the skull base are unremarkable. No definite calvarium fractures. Scanned paranasal sinuses show bilateral maxillary sinuses are clear. IMPRESSION: 1. No evidence of established infarction, or intracranial or extracranial hemorrhage. 2. Age-related brain involutional changes. 3. Chronic microvascular ischemic changes. 4. Early changes of a stroke may not be detected on a CT scan. If strong clinical suspicion of stroke then suggest MRI with diffusion-weighted imaging. Electronically signed by Laine Vasquez 06-19-2024 03:08 AM Head CTA 06/19/24 00:59 EXAM: CT angio head w con CLINICAL HISTORY: fall, headache , confusion , difficulty speaking , 120 ml optiray 320 TECHNIQUE: Axial CT angiography of the head was performed with IV contrast and sagittal and coronal reconstructions. One of these 3D techniques was utilized: Maximum Intensity Pixel (MIP), 3D Reconstructed Images, Volume Rendered Images, Surface Shaded Rendering. One of the following dose reduction techniques were utilized for this exam: Automated exposure control, adjustment of the mA and/or kV according to patient size, and use of iterative reconstruction. 120 ml optiray 320 was given as an IV contrast. COMPARISON: None. FINDINGS: Intracranial Arteries: Few eccentric non-stenotic calcified plaques are noted in the cavernous segments of both internal carotid arteries bilaterally. Otherwise, the intracranial portions of the internal carotid arteries, anterior cerebral arteries, middle cerebral arteries, posterior cerebral arteries, basilar artery, and vertebral arteries are well-opacified. Persistent origin of the posterior cerebral arteries (variant). No evidence of aneurysm, stenosis, or occlusion. [place]: The [place] is complete. Normal caliber of the communicating arteries. No vascular malformations or aneurysms. Venous Structures: Normal opacification of the major dural venous sinuses. No evidence of venous sinus thrombosis. IMPRESSION: Few eccentric non-stenotic calcified plaques are noted in the cavernous segments of both internal carotid arteries bilaterally. Otherwise, unremarkable study. No evidence of significant vascular abnormalities. Electronically signed by Laine Vasquez 06-19-2024 03:09 AM Neck CTA 06/19/24 00:59 EXAM: CT angio neck with con CLINICAL HISTORY: fall, headache , confusion , difficulty speaking , 120 ml optiray 320 TECHNIQUE: Contrast-enhanced thin slice CT angiography scan of the carotid vessels/ neck was performed with 120 ml optiray 320/ml intravenous contrast. Contiguous axial images were obtained. Reformatted coronal and sagittal images were also reviewed. One of the following dose reduction techniques was utilized for this exam.Automated exposure control, adjustment of the mA and/or kV according to patient size, and use of iterative reconstruction. One of these 3D techniques was utilized: Maximum Intensity Pixel (MIP), 3D Reconstructed Images, Volume Rendered Images, Surface Shaded Rendering. COMPARISON: None. FINDINGS: Mild diffuse atherosclerotic changes are evidenced with intimal thickening and scattered calcified atheromatous plaques. Patent aortic arch and its main branches with no tight stenotic/ occlusive lesions. Eccentric, predominantly calcific atheromatous changes are seen in bilateral carotid bulbs with extension to the proximal cervical internal carotid artery on the left side, causing about 20-30% stenosis. The rest of the common carotid, internal, and external carotid arteries are well opacified with no significant stenotic or occlusive lesions. Few calcified atheromatous plaques are seen in the aortic arch and proximal segments of bilateral subclavian arteries close to the origin of the vertebral arteries, not causing any significant luminal stenosis. No aneurysmal changes or dissections. No vascular malformations. Vertebral arteries are well opacified. Slightly hypoplastic left vertebral artery. Jugular veins are well opacified. Dominant right one. Scanned lung apices show apical fibrosis/scarring. Thyroid gland small hypodense nodules were seen. Need sonographic correlation. IMPRESSION: 1. Mild diffuse atherosclerotic changes. 2. Eccentric, predominantly calcific atheromatous changes are seen in bilateral carotid bulbs with extension to the proximal cervical internal carotid artery on the left side, causing about 20-30% stenosis. Electronically signed by Laine Vasquez 06-19-2024 03:12 AM Diagnostic Findings EKG as per my interpretation :Rate 70, NSR, normal axis, T wave inversion septal leads
[2024-06-19] MEDS ORDERED: LORazepam 2 MG/1 ML VIAL IV PRN (06:05)
[2024-06-19] MEDS ORDERED: PHARMACIST DISCHARGE MED REC CONSULT PRN (06:10)
[2024-06-19] MEDS ORDERED: PROMETHAZINE 6.25 MG/50.25 ML BAG IV PRN (06:13)
[2024-06-19] MEDS: cefTRIAXone SODIUM 1,000 MG/50 ML BAG IV STA (06:16)
[2024-06-19] MEDS: NSS + 20MEQ KCL 20 MEQ/1,000 ML BAG IV ONE (06:41)
[2024-06-19] MEDS: LEVOTHYROXINE SODIUM 25 MCG TABLET PO SCH (07:28)
[2024-06-19] MEDS: lisinopril 20 MG TAB PO STA (07:53)
[2024-06-19] MEDS ORDERED: lisinopril 20 MG TAB PO SCH (09:00)
[2024-06-19] MEDS: ASPIRIN 81 MG ECTAB PO SCH (09:04)
[2024-06-19] MEDS: valACYclovir HCL 500 MG TABLET PO SCH (09:04)
--- NOTE | 2024-06-19 09:45 | Neurology Consultation ---
Date of Consultation June 19, 2024 Assessment & Plan (1) Altered mental status: left eye vision loss and confusion in a 83F with a PMH of HTN, HLD. Currently on exam she is orientated but continues having the vision loss. CT and CTA are normal. MRI was completed at OSH and is reportedly normal but images aren't available for review. The cause of her symptoms are unclear. Its possible that a branch retinal artery occlusion could cause more confusion, but given her persistently elevated HTN i would repeat an MRI brain looking for both stroke and PRES. Plan -- continue ASA/statin -- Recommend MRI brain without contrast -- ophthalmology consult at some point -- routine EEG Telehealth Consultation Telehealth Information Telehealth Information: I performed this visit using a real-time telehealth connection between my location and the patients location ([facility]). After connecting through interactive tele-video, patient was identified by name and date of and/or wristband check.Patient (or authorized healthcare food products sales representative) was informed that this was a telemedicine visit and it was being conducted confidentially over secure lines. My office door was closed and no one else was present in the room with me.Patient (or authorized healthcare food products sales representative) provided consent to proceed with the visit, expressed an understanding of privacy and security of the telemedicine visit, and gave permission to have a hospital food products sales representative in the room in order to assist with the visit and to conduct portions of the visit, as needed. I informed the patient (or authorized healthcare food products sales representative) that I reviewed their record and presented the opportunity for them to ask any questions regarding the visit today. The patient agreed to participate. History of Present Illness Reason for Consultation: left eye vision loss and AMS Attending Physician: Charles Cohen MD History of Present Illness Janett Deal is a 83F with a PMH of hypertension, hyperlipidemia, PVD, recurrent shingles on chronic suppression Rx, osteoporosis who presents with vision loss and confusion. She reports that she is admitted because of vision loss on the left side and feeling confused. Her friend reports that on everything changed. They were eating and she kept asking him to come and sit in her chair. Then he was helping her to the bathroom and she couldn't remember where it was. He had to support her walking into the bathroom and then while she was in there he heard a crash and she had fallen off the toilet. He helped her get back on to the toilet but she wasn't able to support herself so he called EMS. Then she was taken to [facility] and admitted for a stroke work up. MRI was reportedly negative. At that time she was found to have a left sided visual field deficit. She was discharged after refusing rehab. Last night she was confused and acting like she was on the phone, having a full conversation, and so he brought her into the hospital again. She denies recent fevers, chills, headache, seizure-like activity, automatisms, chest pain and SOB. Allergies Allergy/AdvReac Type Severity Reaction Status Date / Time latex Allergy Rash Verified 06/19/24 05:13 Home Medications Medication Instructions Recorded Confirmed Type ascorbic acid (vitamin C) 500 mg 500 mg PO DAILY 06/19/24 06/19/24 History chewable tablet aspirin 81 mg tablet,delayed 81 mg PO DAILY 06/19/24 06/19/24 History release denosumab 60 mg/mL subcutaneous See Rx Instructions .Route .COMPLEX 06/19/24 06/19/24 History syringe furosemide 20 mg tablet 20 mg PO DAILY PRN swelling 06/19/24 06/19/24 History lisinopril 20 mg tablet 20 mg PO BID 06/19/24 06/19/24 History simvastatin 10 mg tablet 10 mg PO PM 06/19/24 06/19/24 History valacyclovir 500 mg tablet 500 mg PO BID 06/19/24 06/19/24 History Patient History Surgical History (Updated 06/19/24 @ 03:00 by Ellis Jha PA-C) Hx of tonsillectomy S/P DIVINA-BSO History of cholecystectomy History of cataract surgery History of colonoscopy Social History Smoking Status: Never smoker Second Hand Exposure: No; Do You Dip or Chew Tobacco: No; Tobacco Cessation Education Requested by Patient: No Hx Alcohol Use: No Hx Substance Use: No Preferred Language: Brazilian Consulting Solution Director Required: No Beliefs That Will Affect Care: None Current Living Situation: Alone Other Information That Helps Us Care for You: No Feels Safe at Home: Yes Safety Concerns: Feels Safe At This Time Physical Exam NEUROLOGIC EXAMINATION: Mental Status:alert, oriented to time, place, person, normal recent memory, normal remote memory, normal attention span, normal concentration, normal language, and normal fund of knowledge Cranial Nerves: CN 2 - left sided vision loss CN 3, 4, 6 - extra-ocular movements intact and no nystagmus CN 5 - facial sensation intact CN 7 - no facial asymmetry CN 8 - intact hearing CN 9, 10 - palate symmetric, normal gag CN 11 - good shoulder shrug CN 12 - tongue midline MOTOR: Strength was at least antigravity throughout, Pronator drift was absent, and There were no abnormal movements SENSATION: intact GAIT: deferred COORDINATION: no ataxia with finger to nose testing and heel to earl testing REFLEXES: cannot assess over telemedicine Results & Data Vital Signs (Past 12 Hours) Vital Signs Temp Pulse Pulse Resp BP BP Pulse Ox 06/19/24 09:42 74 06/19/24 09:05 36.7 C 75 17 186/70 H 96 06/19/24 08:18 69 185/92 H 96 06/19/24 07:10 70 24 169/85 H 99 06/19/24 06:30 70 18 173/80 H 95 06/19/24 06:00 73 23 171/81 H 98 06/19/24 05:00 69 21 177/94 H 96 06/19/24 04:58 68 06/19/24 04:30 70 20 170/91 H 98 06/19/24 04:00 74 22 179/90 H 97 06/19/24 03:30 71 18 180/93 H 96 06/19/24 03:02 184/66 H 06/19/24 03:00 77 20 192/97 H 99 06/19/24 02:36 74 20 97 06/19/24 02:34 184/82 H 06/19/24 02:34 184/82 H 06/19/24 02:34 184/82 H 06/19/24 02:34 80 20 184/82 H 98 06/19/24 02:30 77 20 167/81 H 98 06/19/24 02:00 65 20 156/81 H 98 06/19/24 01:03 69 06/19/24 01:02 69 22 152/79 H 98 06/19/24 00:42 36.4 C L 80 18 128/90 99 O2 Del Method 06/19/24 09:42 06/19/24 09:05 Room Air 06/19/24 08:18 Room Air 06/19/24 07:10 Room Air 06/19/24 06:30 06/19/24 06:00 06/19/24 05:00 06/19/24 04:58 06/19/24 04:30 06/19/24 04:00 06/19/24 03:30 06/19/24 03:02 06/19/24 03:00 06/19/24 02:36 06/19/24 02:34 06/19/24 02:34 06/19/24 02:34 06/19/24 02:34 06/19/24 02:30 06/19/24 02:00 06/19/24 01:03 06/19/24 01:02 06/19/24 00:42 Room Air Laboratory Results Abnormal Lab Results 06/19/24 06/19/24 06/19/24 00:59 01:08 01:20 WBC 6.26 RBC 4.46 Hgb 12.6 Hct 39.0 MCV 87.4 MCH 28.3 MCHC 32.3 RDW Std Deviation 47.4 H RDW Coeff of [place] 14.7 H Plt Count 286 MPV 9.5 Immature Gran % (Auto) 0.3 Neut % (Auto) 61.9 Lymph % (Auto) 21.4 Ocean % (Auto) 15.2 Eos % (Auto) 0.6 Baso % (Auto) 0.6 Neut # (Auto) 3.87 Lymph # (Auto) 1.34 Ocean # (Auto) 0.95 H Eos # (Auto) 0.04 Baso # (Auto) 0.04 Immature Gran # (Auto) 0.02 PT 10.3 INR 0.9 APTT 25 PTT Ratio 0.9 Sodium 137 Potassium 3.8 Chloride 100 Carbon Dioxide 27 Anion Gap 10 BUN 27 H Creatinine 1.20 Est Cr Clr Drug Dosing 18.1 eGFR 45.19 BUN/Creatinine Ratio 22.5 H Glucose 90 Calcium 9.9 Magnesium 2.0 Total Bilirubin 0.5 AST 39 ALT 24 Alkaline Phosphatase 69 Total Creatine Kinase 830 H Troponin I High Sens 14.7 H Total Protein 6.9 Albumin 4.1 Globulin 2.8 Albumin/Globulin Ratio 1.5 TSH 10.582 H Free T4 0.76 Urine Color Urine Appearance Urine pH Ur Specific [place] Urine Protein Urine Glucose (UA) Urine Ketones Urine Blood Urine Nitrite Urine Bilirubin Urine Urobilinogen Ur Leukocyte Esterase Urine WBC (Auto) Urine RBC (Auto) U Hyaline Cast (Auto) U Epithel Cells (Auto) Urine Bacteria (Auto) Ethyl Alcohol mg/dL < 10.0 Adenovirus (PCR) Not Detected B. pertussis DNA (PCR) Not Detected B.parapertussis DNA PCR Not Detected Lyme Disease Screen Negative C. pneumoniae DNA (PCR) Not Detected Coronavirus OC43 (PCR) Not Detected Coronavirus HKU1 (PCR) Not Detected Coronavirus 229E (PCR) Not Detected SARS-CoV-2 (PCR) Not Detected Coronavirus NL63 (PCR) Not Detected Human Metapneumovir PCR Not Detected Influenza Type A (PCR) Not Detected Influenza Type B (PCR) Not Detected M. pneumoniae (PCR) Not Detected Parainfluenza 1 (PCR) Not Detected Parainfluenza 2 (PCR) Not Detected Parainfluenza 3 (PCR) Not Detected Parainfluenza 4 (PCR) Not Detected RSV (PCR) Not Detected Entero/Rhino (PCR) Not Detected 06/19/24 02:25 WBC RBC Hgb Hct MCV MCH MCHC RDW Std Deviation RDW Coeff of [place] Plt Count MPV Immature Gran % (Auto) Neut % (Auto) Lymph % (Auto) [place] % (Auto) Eos % (Auto) Baso % (Auto) Neut # (Auto) Lymph # (Auto) Ocean # (Auto) Eos # (Auto) Baso # (Auto) Immature Gran # (Auto) PT INR APTT PTT Ratio Sodium Potassium Chloride Carbon Dioxide Anion Gap BUN Creatinine Est Cr Clr Drug Dosing eGFR BUN/Creatinine Ratio Glucose Calcium Magnesium Total Bilirubin AST ALT Alkaline Phosphatase Total Creatine Kinase Troponin I High Sens Total Protein Albumin Globulin Albumin/Globulin Ratio TSH Free T4 Urine Color Yellow Urine Appearance Clear Urine pH 5.5 Ur Specific [place] 1.037 H Urine Protein Trace H Urine Glucose (UA) Negative Urine Ketones 1+ H Urine Blood Negative Urine Nitrite Negative Urine Bilirubin Negative Urine Urobilinogen Negative Ur Leukocyte Esterase 1+ H Urine WBC (Auto) 11-20 H Urine RBC (Auto) 0-2 U Hyaline Cast (Auto) 11-20 H U Epithel Cells (Auto) 0-2 Urine Bacteria (Auto) None Seen Ethyl Alcohol mg/dL Adenovirus (PCR) B. pertussis DNA (PCR) B.parapertussis DNA PCR Lyme Disease Screen C. pneumoniae DNA (PCR) Coronavirus OC43 (PCR) Coronavirus HKU1 (PCR) Coronavirus 229E (PCR) SARS-CoV-2 (PCR) Coronavirus NL63 (PCR) Human Metapneumovir PCR Influenza Type A (PCR) Influenza Type B (PCR) M. pneumoniae (PCR) Parainfluenza 1 (PCR) Parainfluenza 2 (PCR) Parainfluenza 3 (PCR) Parainfluenza 4 (PCR) RSV (PCR) Entero/Rhino (PCR) Diagnostic Findings Head CT 06/19/24 00:59 EXAM: CT head/brain wo con CLINICAL HISTORY: fall, headache , confusion , difficulty speaking TECHNIQUE: An axial non-contrast CT scan of the brain was performed from the skull base to the high parietal region. One of the following dose reduction techniques was utilized for this exam: Automated exposure control, adjustment of the mA and/or kV according to patient size, and use of iterative reconstruction. COMPARISON: None. FINDINGS: Prominent ventricular system and extra-axial CSF spaces are suggestive of age-related involutional changes. There are scattered periventricular hypodensities of chronic microvascular ischemic changes. The duong-white matter differentiation is preserved. No space-occupying lesions. No midline shifts or deformity. No intracerebral or extra axial hematoma. Unremarkable CT appearance of the posterior fossa structures namely the cerebellar hemispheres, brainstem, and cerebellar peduncles. The IACs are unremarkable. The cerebello-pontine angles are clear. The pituitary gland, the pineal gland, and the optic chiasm is unremarkable. The osseous structures in the skull base are unremarkable. No definite calvarium fractures. Scanned paranasal sinuses show bilateral maxillary sinuses are clear. IMPRESSION: 1. No evidence of established infarction, or intracranial or extracranial hemorrhage. 2. Age-related brain involutional changes. 3. Chronic microvascular ischemic changes. 4. Early changes of a stroke may not be detected on a CT scan. If strong clinical suspicion of stroke then suggest MRI with diffusion-weighted imaging. Electronically signed by Laine Vasquez 06-19-2024 03:08 AM Head CTA 06/19/24 00:59 EXAM: CT angio head w con CLINICAL HISTORY: fall, headache , confusion , difficulty speaking , 120 ml optiray 320 TECHNIQUE: Axial CT angiography of the head was performed with IV contrast and sagittal and coronal reconstructions. One of these 3D techniques was utilized: Maximum Intensity Pixel (MIP), 3D Reconstructed Images, Volume Rendered Images, Surface Shaded Rendering. One of the following dose reduction techniques were utilized for this exam: Automated exposure control, adjustment of the mA and/or kV according to patient size, and use of iterative reconstruction. 120 ml optiray 320 was given as an IV contrast. COMPARISON: None. FINDINGS: Intracranial Arteries: Few eccentric non-stenotic calcified plaques are noted in the cavernous segments of both internal carotid arteries bilaterally. Otherwise, the intracranial portions of the internal carotid arteries, anterior cerebral arteries, middle cerebral arteries, posterior cerebral arteries, basilar artery, and vertebral arteries are well-opacified. Persistent origin of the posterior cerebral arteries (variant). No evidence of aneurysm, stenosis, or occlusion. [place]: The [place] is complete. Normal caliber of the communicating arteries. No vascular malformations or aneurysms. Venous Structures: Normal opacification of the major dural venous sinuses. No evidence of venous sinus thrombosis. IMPRESSION: Few eccentric non-stenotic calcified plaques are noted in the cavernous segments of both internal carotid arteries bilaterally. Otherwise, unremarkable study. No evidence of significant vascular abnormalities. Electronically signed by Laine Vasquez 06-19-2024 03:09 AM Neck CTA 06/19/24 00:59 EXAM: CT angio neck with con CLINICAL HISTORY: fall, headache , confusion , difficulty speaking , 120 ml optiray 320 TECHNIQUE: Contrast-enhanced thin slice CT angiography scan of the carotid vessels/ neck was performed with 120 ml optiray 320/ml intravenous contrast. Contiguous axial images were obtained. Reformatted coronal and sagittal images were also reviewed. One of the following dose reduction techniques was utilized for this exam.Automated exposure control, adjustment of the mA and/or kV according to patient size, and use of iterative reconstruction. One of these 3D techniques was utilized: Maximum Intensity Pixel (MIP), 3D Reconstructed Images, Volume Rendered Images, Surface Shaded Rendering. COMPARISON: None. FINDINGS: Mild diffuse atherosclerotic changes are evidenced with intimal thickening and scattered calcified atheromatous plaques. Patent aortic arch and its main branches with no tight stenotic/ occlusive lesions. Eccentric, predominantly calcific atheromatous changes are seen in bilateral carotid bulbs with extension to the proximal cervical internal carotid artery on the left side, causing about 20-30% stenosis. The rest of the common carotid, internal, and external carotid arteries are well opacified with no significant stenotic or occlusive lesions. Few calcified atheromatous plaques are seen in the aortic arch and proximal segments of bilateral subclavian arteries close to the origin of the vertebral arteries, not causing any significant luminal stenosis. No aneurysmal changes or dissections. No vascular malformations. Vertebral arteries are well opacified. Slightly hypoplastic left vertebral artery. Jugular veins are well opacified. Dominant right one. Scanned lung apices show apical fibrosis/scarring. Thyroid gland small hypodense nodules were seen. Need sonographic correlation. IMPRESSION: 1. Mild diffuse atherosclerotic changes. 2. Eccentric, predominantly calcific atheromatous changes are seen in bilateral carotid bulbs with extension to the proximal cervical internal carotid artery on the left side, causing about 20-30% stenosis. Electronically signed by Laine Vasquez 06-19-2024 03:12 AM (1) Altered mental status Altered mental status type: transient alteration of awareness Qualified Code(s): R40.4 - Transient alteration of awareness
[2024-06-19] MEDS: GADOBUTROL 7.5ML VIAL IV ONE (12:49)
--- NOTE | 2024-06-19 13:05 | Electrocardiogram Report ---
Test Reason : Blood Pressure : */* mmHG Vent. Rate : 70 BPM Atrial Rate : 70 BPM P-R Int : 158 ms QRS Dur : 72 ms QT Int : 396 ms P-R-T Axes : 69 76 78 degrees QTcB Int : 427 ms Normal sinus rhythm Septal infarct , age undetermined Abnormal ECG No previous ECGs available Confirmed by Aleks Arriaga ([id number]) on 06/19/2024 1:05:27 PM Referred By: REFERRED SELF Confirmed By: Aleks Arriaga
[2024-06-19] MEDS: HEPARIN SOD 5,000 UNIT/0.5 ML VIAL SQ SCH (13:39)
--- NOTE | 2024-06-19 14:10 | Hospitalist Progress Note ---
Date of Service June 19, 2024 Assessment & Plan (1) Altered mental status: Plan: Altered mental status Likely metabolic encephalopathy secondary to UTI Strokelike symptoms DD: PRES Syncope likely due to concussion. R/O seizure --CT head:No evidence of established infarction, or intracranial or extracranial hemorrhage. Age-related brain involutional changes. Chronic microvascular ischemic changes. --Head CTA:Few eccentric non-stenotic calcified plaques are noted in the cavernous segments of both internal carotid arteries bilaterally. Otherwise, unremarkable study. No evidence of significant vascular abnormalities. --Neck CTA:Mild diffuse atherosclerotic changes. Eccentric, predominantly calcific atheromatous changes are seen in bilateral carotid bulbs with extension to the proximal cervical internal carotid artery on the left side, causing about 20-30% stenosis. --MRI brain:pending --EEG:pending Continue aspirin Statin on hold as CK elevated Monitor for any arrhythmias Appreciate neurology input: Advised to repeat MRI, check EEG Continue neurochecks Will likely need ophthalmology evaluation eventually as outpatient Will titrate antihypertensives to control blood pressure if MRI negative for CVA Suspected UTI Urine culture pending Empirically on ceftriaxone Elevated CK levels Likely secondary to fall Monitor CK levels Hold statin for now Subclinical hypothyroidism Elevated TSH, normal free T4 Started on low-dose levothyroxine Will need repeat thyroid function test as outpatient Uncontrolled hypertension ? Likely situational Continue lisinopril for now Monitor and adjust medications as needed Hyperlipidemia Resume statin as able Peripheral vascular disease Mild coronary artery disease Continue aspirin, resume statin as able 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 Rx with Valtrex Renally adjusted Valtrex dose DVT Px: Heparin SQ CODE STATUS DNI/DNR Admission and Anticipated Discharge Date Admission Date: June 19, 2024 Subjective Patient is seen and examined at bedside States feeling a lot better today Offers no specific complaints during my encounter this morning Discussed with neurology today MRI brain pending Review of Systems Review of Systems: All systems reviewed & are unremarkable except as noted in Subjective Physical Exam Physical Exam: Physical Exam: Vitals signs as noted above General Appearance:Thin, frail, elderly, no apparent distress Head: normocephalic, Atraumatic Eyes: normal inspection, EOMI, left visual deficit Neck: supple, Trachea midline Respiratory/Chest: Normal breath sounds, CTA, No accessory muscle use Cardiovascular: S1, S2, No murmur Abdomen/GI:Soft, Non tender, Bowel sounds present Extremities/Musculoskeletal:normal inspection, no edema Neurologic/Psych:AAOX3, grossly no focal neurological deficits Skin: normal color, warm Results & Data Results & Data Vital Signs (Past 12 Hours) Vital Signs Temp Pulse Pulse Resp BP BP Pulse Ox 06/19/24 12:00 36.7 C 73 16 147/73 H 98 06/19/24 09:42 74 06/19/24 09:05 36.7 C 75 17 186/70 H 96 06/19/24 08:18 69 185/92 H 96 06/19/24 07:10 70 24 169/85 H 99 06/19/24 06:30 70 18 173/80 H 95 06/19/24 06:00 73 23 171/81 H 98 06/19/24 05:00 69 21 177/94 H 96 06/19/24 04:58 68 06/19/24 04:30 70 20 170/91 H 98 06/19/24 04:00 74 22 179/90 H 97 06/19/24 03:30 71 18 180/93 H 96 06/19/24 03:02 184/66 H 06/19/24 03:00 77 20 192/97 H 99 06/19/24 02:36 74 20 97 06/19/24 02:34 184/82 H 06/19/24 02:34 184/82 H 06/19/24 02:34 184/82 H 06/19/24 02:34 80 20 184/82 H 98 06/19/24 02:30 77 20 167/81 H 98 06/19/24 02:00 65 20 156/81 H 98 O2 Del Method 06/19/24 12:00 Room Air 06/19/24 09:42 06/19/24 09:05 Room Air 06/19/24 08:18 Room Air 06/19/24 07:10 Room Air 06/19/24 06:30 06/19/24 06:00 06/19/24 05:00 06/19/24 04:58 06/19/24 04:30 06/19/24 04:00 06/19/24 03:30 06/19/24 03:02 06/19/24 03:00 06/19/24 02:36 06/19/24 02:34 06/19/24 02:34 06/19/24 02:34 06/19/24 02:34 06/19/24 02:30 06/19/24 02:00 Laboratory Results Short CBC 06/19/24 Range/Units 00:59 WBC 6.26 (4.8-10.8) K/ul Hgb 12.6 (12.0-16.0) g/dl Hct 39.0 (37.0-47.0) % Plt Count 286 (130-400) K/uL BMP 06/19/24 00:59 Sodium 137 Potassium 3.8 Chloride 100 Carbon Dioxide 27 BUN 27 H Creatinine 1.20 Glucose 90 Calcium 9.9 Cardiac Enzymes 06/19/24 Range/Units 00:59 Total Creatine Kinase 830 H (26-192) U/L Liver Function 06/19/24 Range/Units 00:59 Total Bilirubin 0.5 (0.2-1.0) mg/dl AST 39 (13-39) U/L ALT 24 (7-52) U/L Alkaline Phosphatase 69 (34-104) U/L Albumin 4.1 (3.4-5.0) gm/dl Urine 06/19/24 Range/Units 02:25 Urine Color Yellow Urine Appearance Clear (Clear) Urine pH 5.5 (4.5-7.5) Ur Specific [place] 1.037 H (1.000-1.030) Urine Protein Trace H (Negative) Urine Glucose (UA) Negative (Negative) (1) Altered mental status Altered mental status type: transient alteration of awareness Qualified Code(s): R40.4 - Transient alteration of awareness
--- NOTE | 2024-06-19 14:44 | Magnetic Resonance Report ---
EXAM: MR brain wo/w con CLINICAL HISTORY: PT STATES FOUND ON THE FLOOR IN THE BATHROOM FEW DAYS AGO. CHIN LACERATION. DID HIT HEAD. AMS. RECENT ADMIT TO [facility]. STILL HAD SYMPTOMS CAME HERE. NO PRIOR SURGERY. NO HX OF CANCER. 3.5CC GADAVIST ADMINISTERED @ 1243. GFR 45.19 06/19/24 TECHNIQUE: MRI of the brain was performed with and without intravenous contrast administration of 3.5 cc Gadavist. Sequences obtained include pre-contrast and post-contrast T1-weighted, T2-weighted, FLAIR (Fluid-Attenuated Inversion Recovery), DWI (Diffusion-Weighted Imaging), and ADC (Apparent Diffusion Coefficient) sequences. COMPARISON: No previous studies are available for comparison. FINDINGS: Brain Parenchyma: Mild age-related cerebral involutional changes were noted. [id number] multiple scattered patchy abnormal signals in the deep periventricular /[id number] subcortical white matter regions of both frontal and parietal lobes, eliciting low T1 , bright T2 WIs signals, no diffusion restriction noted, no post-contrast abnormal enhancement revealed./OBX.5.1.2/OBX.5.1 No evidence of acute infarction or hemorrhage. Bravo-white matter differentiation is preserved. No abnormal signal-intensity lesions were identified. Post-Contrast Findings: No abnormal enhancement of the brain parenchyma or meninges. Ventricles and Sulci: The ventricular system is within normal limits without evidence of hydrocephalus. Sulci and cisternal spaces are age-appropriate. Brainstem and Cerebellum: Normal appearance of the brainstem and cerebellum without focal lesions or abnormal enhancement. Vessels: Intracranial vessels appear normal without evidence of vascular malformations or aneurysms. Skull and Calvarium: No evidence of skull vault lesions or abnormal marrow signals within the calvarium. IMPRESSION: MRI of the brain with and without contrast: 1. Mild age-related cerebral involutional changes were noted. 2. Evidence of scattered white matter abnormal patchy signals were noted related to chronic ischemic changes related to small vessel disease. 3. No evidence of acute intracranial pathology or abnormal contrast enhancement. Electronically signed by Laine Vasquez 06-19-2024 2:43 PM
[2024-06-19] MEDS: amLODIPine BESYLATE 5 MG TAB PO ONE (17:02)
[2024-06-19] MEDS ORDERED: SIMVASTATIN 10 MG TAB PO SCH (21:00)
[2024-06-19] MEDS: ACETAMINOPHEN 325 MG TAB PO PRN (21:15)
[2024-06-19] MEDS: lisinopril 20 MG TAB PO SCH (21:16)
[2024-06-20] MEDS: cefTRIAXone SODIUM 1,000 MG/50 ML BAG IV SCH (06:02)
[2024-06-20 06:24] LABS: Basophils # (auto) 0.03 K/uL (0.00-0.20); Basophils % (auto) 0.7 %; Eosinophils # (auto) 0.12 K/uL (0.00-0.50); Eosinophils % (auto) 2.6 %; Hemoglobin 9.8 g/dl (12.0-16.0); Immature Granulocytes # (auto) 0.01 K/uL (0.01-0.20); Immature Granulocytes % (auto) 0.2 %; Lymphocytes # (auto) 1.31 K/uL (1.20-3.40); Lymphocytes % (auto) 28.9 %; Mean Corpuscular Hemoglobin 28.7 pg (25.0-34.0); Mean Corpuscular Hgb Conc 32.7 g/dL (32.0-36.0); Mean Corpuscular Volume 87.7 fL (80.0-100.0); Mean Platelet Volume 10.1 fL (9.4-12.4); Monocytes # (auto) 0.66 K/uL (0.11-0.59); Monocytes % (auto) 14.6 %; Platelet Count 236 K/uL (130-400); RDW Coefficient of Variation 14.7 % (11.5-14.5); RDW Standard Deviation 47.7 fL (36.4-46.3); Red Blood Count 3.42 M/uL (4.20-5.40); White Blood Count 4.53 K/ul (4.8-10.8)
[2024-06-20 06:49] LABS: BUN Creatinine Ratio 31.6 (10-20); Calcium 8.7 mg/dl (8.6-10.3); Chol HDL Ratio 2.8 (0-5); Creatinine Clr Calc Pharmacy 32.1 ml/min; Potassium 4.2 mmol/L (3.5-5.1)
[2024-06-20] MEDS: amLODIPine BESYLATE 5 MG TAB PO SCH (07:38)
[2024-06-20] MEDS: valACYclovir HCL 500 MG TABLET PO SCH (07:38)
[2024-06-20 13:35] LABS: Hematocrit (blood only) 34.5 % (37.0-47.0)
--- NOTE | 2024-06-20 14:33 | Hospitalist Progress Note ---
Date of Service June 20, 2024 Assessment & Plan (1) Altered mental status: Plan: Altered mental status Likely metabolic encephalopathy secondary to UTI Strokelike symptoms DD: PRES Syncope likely due to concussion. R/O seizure --CT head:No evidence of established infarction, or intracranial or extracranial hemorrhage. Age-related brain involutional changes. Chronic microvascular ischemic changes. --Head CTA:Few eccentric non-stenotic calcified plaques are noted in the cavernous segments of both internal carotid arteries bilaterally. Otherwise, unremarkable study. No evidence of significant vascular abnormalities. --Neck CTA:Mild diffuse atherosclerotic changes. Eccentric, predominantly calcific atheromatous changes are seen in bilateral carotid bulbs with extension to the proximal cervical internal carotid artery on the left side, causing about 20-30% stenosis. --MRI brain:pending --EEG:pending --Lipid panel within normal limits. LDL 93 Continue aspirin Hold statin for now due to elevated CK Monitor for any arrhythmias Appreciate neurology input: Advised to repeat MRI, check EEG Continue neurochecks Will likely need ophthalmology evaluation eventually as outpatient PT recommends to return home Needs follow-up with neurology on discharge Likely discharge home tomorrow Suspected UTI--ruled out Urine culture : Probable skin daria Empirically received IV Rocephin Elevated CK levels Likely secondary to fall Monitor CK levels Hold statin for now CK levels improved Subclinical hypothyroidism Elevated TSH, normal free T4 Started on low-dose levothyroxine Will need repeat thyroid function test as outpatient Uncontrolled hypertension Continue lisinopril Added amlodipine 2.5 mg daily Monitor BP Hyperlipidemia Resume statin as able Peripheral vascular disease Mild coronary artery disease Continue aspirin, resume statin as able 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 Rx with Valtrex Renally adjusted Valtrex dose DVT Px: Heparin SQ CODE STATUS DNI/DNR Admission and Anticipated Discharge Date Admission Date: June 19, 2024 Subjective Patient is seen and examined at bedside Sitting in chair comfortably during my encounter Feels well today No complaints Review of Systems Review of Systems: All systems reviewed & are unremarkable except as noted in Subjective Physical Exam Physical Exam: Physical Exam: Vitals signs as noted above General Appearance:Thin, frail, elderly, no apparent distress Head: normocephalic, Atraumatic Eyes: normal inspection, EOMI, left visual deficit Neck: supple, Trachea midline Respiratory/Chest: Normal breath sounds, CTA, No accessory muscle use Cardiovascular: S1, S2, No murmur Abdomen/GI:Soft, Non tender, Bowel sounds present Extremities/Musculoskeletal:normal inspection, no edema Neurologic/Psych:AAOX3, grossly no focal neurological deficits Skin: normal color, warm Results & Data Results & Data Vital Signs (Past 12 Hours) Vital Signs Temp Pulse Pulse Resp BP BP Pulse Ox 06/20/24 12:00 36.6 C 76 16 143/77 H 97 06/20/24 08:00 36.4 C L 63 16 161/65 H 97 06/20/24 06:41 70 06/20/24 03:25 36.5 C 67 18 149/74 H 96 O2 Del Method 06/20/24 12:00 Room Air 06/20/24 08:00 Room Air 06/20/24 06:41 06/20/24 03:25 Room Air Laboratory Results Short CBC 06/20/24 06/20/24 Range/Units 05:43 13:03 WBC 4.53 L (4.8-10.8) K/ul Hgb 9.8 L 11.0 L (12.0-16.0) g/dl Hct 30.0 L 34.5 L (37.0-47.0) % Plt Count 236 (130-400) K/uL BMP 06/20/24 05:43 Sodium 139 Potassium 4.2 Chloride 108 H Carbon Dioxide 26 BUN 24 H Creatinine 0.76 D Glucose 91 Calcium 8.7 Cardiac Enzymes 06/20/24 Range/Units 05:43 Total Creatine Kinase 417 H (26-192) U/L
[2024-06-21 08:25] LABS: Basophils # (auto) 0.03 K/uL (0.00-0.20); Basophils % (auto) 0.5 %; Eosinophils # (auto) 0.22 K/uL (0.00-0.50); Eosinophils % (auto) 3.6 %; Hematocrit (blood only) 38.4 % (37.0-47.0); Hemoglobin 12.1 g/dl (12.0-16.0); Immature Granulocytes # (auto) 0.02 K/uL (0.01-0.20); Immature Granulocytes % (auto) 0.3 %; Lymphocytes # (auto) 1.63 K/uL (1.20-3.40); Lymphocytes % (auto) 26.6 %; Mean Corpuscular Hemoglobin 28.1 pg (25.0-34.0); Mean Corpuscular Hgb Conc 31.5 g/dL (32.0-36.0); Mean Corpuscular Volume 89.1 fL (80.0-100.0); Mean Platelet Volume 10.1 fL (9.4-12.4); Monocytes # (auto) 0.78 K/uL (0.11-0.59); Monocytes % (auto) 12.7 %; Neutrophils # (auto) 3.44 K/uL (1.40-6.50); Neutrophils % (auto) 56.3 %; Platelet Count 312 K/uL (130-400); RDW Coefficient of Variation 14.6 % (11.5-14.5); RDW Standard Deviation 47.8 fL (36.4-46.3); Red Blood Count 4.31 M/uL (4.20-5.40); White Blood Count 6.12 K/ul (4.8-10.8)
[2024-06-21 08:45] LABS: BUN Creatinine Ratio 21.3 (10-20); Calcium 9.3 mg/dl (8.6-10.3); Creatinine Clr Calc Pharmacy 27.3 ml/min; Potassium 3.6 mmol/L (3.5-5.1)
[2024-06-21] MEDS ORDERED: hydrALAZINE 10 MG TAB PO PRN (09:23)
--- NOTE | 2024-06-21 11:07 | XRay Report ---
XR knee LT 3V CLINICAL HISTORY: Knee Pain H/O fall COMPARISON: None FINDINGS: Alignment of the left knee is anatomic. There is no no acute fracture. There is a small lani int effusion. There is chondrocalcinosis within the menisci. Joint spaces are preserved. IMPRESSION: 1. No fractures within the left knee. 2. Small left knee joint effusion. 3. Chondrocalcinosis within the menisci. ACT 112: Negative or not required by law. Electronically signed by: Boo Nash M.D. 06/21/2024 11:06 AM
--- NOTE | 2024-06-21 16:08 | Hospitalist Progress Note ---
Date of Service June 21, 2024 Assessment & Plan (1) Altered mental status: Plan: Altered mental status Likely metabolic encephalopathy secondary to UTI Strokelike symptoms DD: PRES Syncope likely due to concussion. R/O seizure --CT head:No evidence of established infarction, or intracranial or extracranial hemorrhage. Age-related brain involutional changes. Chronic microvascular ischemic changes. --Head CTA:Few eccentric non-stenotic calcified plaques are noted in the cavernous segments of both internal carotid arteries bilaterally. Otherwise, unremarkable study. No evidence of significant vascular abnormalities. --Neck CTA:Mild diffuse atherosclerotic changes. Eccentric, predominantly calcific atheromatous changes are seen in bilateral carotid bulbs with extension to the proximal cervical internal carotid artery on the left side, causing about 20-30% stenosis. --MRI brain:Mild age-related cerebral involutional changes were noted. Evidence of scattered white matter abnormal patchy signals were noted related to chronic ischemic changes related to small vessel disease. No evidence of acute intracranial pathology or abnormal contrast enhancement. --EEG:pending --Lipid panel within normal limits. LDL 93 Continue aspirin Hold statin for now due to elevated CK Monitor for any arrhythmias Appreciate neurology input: Advised to repeat MRI, check EEG Continue Neuro Checks Will likely need ophthalmology evaluation eventually as outpatient PT recommends to return home Needs follow-up with neurology on discharge Plan to discharge once EEG complete, blood pressure stable Suspected UTI--ruled out Urine culture : Probable skin daria Empirically received IV Rocephin Elevated CK levels Likely secondary to fall Monitor CK levels Hold statin for now CK levels improved Subclinical hypothyroidism Elevated TSH, normal free T4 Started on low-dose levothyroxine Will need repeat thyroid function test as outpatient Uncontrolled hypertension Increase lisinopril to 20 mg twice a day Increase amlodipine to 5 mg daily Hydralazine as needed Monitor BP Adjust medications as needed Hyperlipidemia Resume statin as able Peripheral vascular disease Mild coronary artery disease Continue aspirin, resume statin as able 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 Rx with Valtrex Renally adjusted Valtrex dose DVT Px: Heparin SQ CODE STATUS DNI/DNR Admission and Anticipated Discharge Date Admission Date: June 19, 2024 Subjective Patient is seen and examined at bedside States having right-sided headache this morning Also reports left knee pain with activity Blood pressure noted to be elevated today Denies any chest pain, dizziness, nausea, vomiting, dyspnea Review of Systems Review of Systems: All systems reviewed & are unremarkable except as noted in Subjective Physical Exam Physical Exam: Physical Exam: Vitals signs as noted above General Appearance:Thin, frail, elderly, no apparent distress Head: normocephalic, Atraumatic Eyes: normal inspection, EOMI, left visual deficit Neck: supple, Trachea midline Respiratory/Chest: Normal breath sounds, CTA, No accessory muscle use Cardiovascular: S1, S2, No murmur Abdomen/GI:Soft, Non tender, Bowel sounds present Extremities/Musculoskeletal:normal inspection, no edema Neurologic/Psych:AAOX3, grossly no focal neurological deficits Skin: normal color, warm Results & Data Results & Data Vital Signs (Past 12 Hours) Vital Signs Temp Pulse Pulse Resp BP Pulse Ox O2 Del Method 06/21/24 15:25 36.3 C L 72 18 168/74 H 99 Room Air 06/21/24 14:19 82 06/21/24 11:49 36.7 C 76 20 150/77 H 98 Room Air 06/21/24 08:30 36.6 C 86 18 203/105 H 92 Room Air 06/21/24 07:31 69 Laboratory Results Short CBC 06/21/24 Range/Units 07:42 WBC 6.12 (4.8-10.8) K/ul Hgb 12.1 (12.0-16.0) g/dl Hct 38.4 (37.0-47.0) % Plt Count 312 (130-400) K/uL [facility] 06/21/24 07:42 Sodium 141 Potassium 3.6 Chloride 105 Carbon Dioxide 29 BUN 19 Creatinine 0.89 Glucose 86 Calcium 9.3
[2024-06-21] MEDS: amLODIPine BESYLATE 5 MG TAB PO ONE (16:38)
--- NOTE | 2024-06-21 18:46 | Electroencephalogram ---
EEG Procedure Note Date of Service June 21, 2024 Start / End Times Start Time: 1210 End Time: 1230 Referring Physician Moe Eugene History A 83 year old female w syncope. EEG performed for evaluation of epileptiform activity. Home Medication List Medication Instructions Recorded Confirmed Type ascorbic acid (vitamin C) 500 mg 500 mg PO DAILY 06/19/24 06/19/24 History chewable tablet aspirin 81 mg tablet,delayed 81 mg PO DAILY 06/19/24 06/19/24 History release denosumab 60 mg/mL subcutaneous See Rx Instructions .Route .COMPLEX 06/19/24 06/19/24 History syringe furosemide 20 mg tablet 20 mg PO DAILY PRN swelling 06/19/24 06/19/24 History lisinopril 20 mg tablet 20 mg PO BID 06/19/24 06/19/24 History simvastatin 10 mg tablet 10 mg PO PM 06/19/24 06/19/24 History valacyclovir 500 mg tablet 500 mg PO BID 06/19/24 06/19/24 History Inpatient Medication List Acetaminophen (Acetaminophen 325 Mg Tab) 650 mg PO QID PRN PRN Reason: pain/fever Stop: 07/19/24 06:12 Last Admin: 06/19/24 21:15 Dose: 650 mg Documented By: DARIN Aspirin (Aspirin 81 Mg Ectab) 81 mg PO DAILY [facility] Stop: 07/19/24 08:59 Last Admin: 06/21/24 08:24 Dose: 81 mg Documented By: Admin: 06/20/24 07:39 Dose: 81 mg Documented By: Admin: 06/19/24 09:04 Dose: 81 mg Documented By: YUE Heparin Sodium (Porcine) (Heparin Sod 5,000 Unit/0.5 Ml Vial) 5,000 units SQ Q8 [facility] Stop: 07/19/24 13:59 Last Admin: 06/21/24 13:26 Dose: 5,000 units Documented By: Admin: 06/21/24 06:02 Dose: 5,000 units Documented By: Admin: 06/20/24 20:14 Dose: 5,000 units Documented By: Admin: 06/20/24 13:27 Dose: Not Given Documented By: Admin: 06/20/24 06:02 Dose: 5,000 units Documented By: Admin: 06/19/24 21:16 Dose: 5,000 units Documented By: Admin: 06/19/24 13:39 Dose: 5,000 units Documented By: YUE Ceftriaxone Sodium (Rocephin) 1,000 mg in 50 mls @ 100 mls/hr IV Q24H [facility] Stop: 06/30/24 05:59 Last Infusion: 06/21/24 06:37 Dose: Infused Documented By: Admin: 06/21/24 06:02 Dose: 100 mls/hr Documented By: Infusion: 06/20/24 06:43 Dose: Infused Documented By: Admin: 06/20/24 06:02 Dose: 100 mls/hr Documented By: DARIN Levothyroxine Sodium (Levothyroxine Sodium 25 Mcg Tablet) 25 mcg PO DAILYBB [facility] Stop: 07/19/24 06:29 Last Admin: 06/21/24 06:03 Dose: 25 mcg Documented By: Admin: 06/20/24 06:02 Dose: 25 mcg Documented By: Admin: 06/19/24 07:28 Dose: 25 mcg Documented By: GABRIEL Lisinopril (Lisinopril 20 Mg Tab) 20 mg PO BID [facility] Stop: 07/19/24 20:59 Last Admin: 06/21/24 08:24 Dose: 20 mg Documented By: Admin: 06/20/24 20:14 Dose: 20 mg Documented By: Admin: 06/20/24 07:39 Dose: 20 mg Documented By: Admin: 06/19/24 21:16 Dose: 20 mg Documented By: DARIN Valacyclovir HCl (Valacyclovir Hcl 500 Mg Tablet) 500 mg PO DAILY [facility] Stop: 07/19/24 08:59 Last Admin: 06/21/24 08:24 Dose: 500 mg Documented By: Admin: 06/20/24 07:38 Dose: 500 mg Documented By: YUE Discontinued Medications Amlodipine Besylate (Amlodipine Besylate 5 Mg Tab) 2.5 mg PO NOW ONE Stop: 06/19/24 15:38 Last Admin: 06/19/24 17:02 Dose: 2.5 mg Documented By: YUE Amlodipine Besylate (Amlodipine Besylate 5 Mg Tab) 2.5 mg PO QAM [facility] Stop: 07/20/24 08:59 Last Admin: 06/21/24 08:24 Dose: 2.5 mg Documented By: Admin: 06/20/24 07:38 Dose: 2.5 mg Documented By: YUE Amlodipine Besylate (Amlodipine Besylate 5 Mg Tab) 2.5 mg PO ONE ONE Stop: 06/21/24 16:08 Last Admin: 06/21/24 16:38 Dose: 2.5 mg Documented By: JEROME Gadobutrol (Gadobutrol 7.5ml Vial) 3.5 ml IV ONCE ONE Stop: 06/19/24 12:50 Last Admin: 06/19/24 12:49 Dose: 3.5 ml Documented By: BLAKE Sodium Chloride (Nss) 1,000 mls @ 999 mls/hr IV .Q1H1M ONE Stop: 06/19/24 02:55 Last Infusion: 06/19/24 03:05 Dose: Infused Documented By: Admin: 06/19/24 01:59 Dose: 999 mls/hr Documented By: ZOILA Ceftriaxone Sodium (Rocephin) 1,000 mg in 50 mls @ 100 mls/hr IV NOW STA Stop: 06/19/24 06:38 Last Infusion: 06/19/24 06:57 Dose: Infused Documented By: Admin: 06/19/24 06:16 Dose: 100 mls/hr Documented By: ZOILA Potassium Chloride/Sodium Chloride (Normal Saline W/20 Meq Kcl) 20 meq in 1,000 mls @ 60 mls/hr IV .[id number] ONE Stop: 06/19/24 22:55 Last Infusion: 06/19/24 23:54 Dose: Infused Documented By: Admin: 06/19/24 06:41 Dose: 60 mls/hr Documented By: ZOILA Ioversol (Optiray 320 125ml) 120 ml IV ONCE ONE Stop: 06/19/24 02:19 Last Admin: 06/19/24 02:13 Dose: 120 ml Documented By: JESSICA Lisinopril (Lisinopril 20 Mg Tab) 20 mg PO NOW STA Stop: 06/19/24 07:39 Last Admin: 06/19/24 07:53 Dose: 20 mg Documented By: GABRIEL Valacyclovir HCl (Valacyclovir Hcl 500 Mg Tablet) 500 mg PO BID [facility] Stop: 07/19/24 08:59 Last Admin: 06/19/24 09:04 Dose: 500 mg Documented By: YUE Description This is a 21 electrode EEG with a single channel dedicated to limited EKG. The electrodes were placed in accordance with the International 10-20 system. REPORT: At the onset of the EEG, the patient is awake. The background activity consist of 9 Hz, persistent, posteriorly dominant, moderate amplitude, symmetric and rhythmic activity that is reactive to eye opening. Anteriorly, it consist of a mixture of low voltage indeterminate activity and 15-25 Hz, persistent, low amplitude, symmetric and rhythmic activity. Stepwise intermittent photic stimulation (1-21 Hz) and hyperventilation (3 minutes, good effort) do not induce any abnormalities. Drowsiness is characterized by low amplitude mixed frequency activity, roving eye movements, and decreased eye blinking and muscle artifact. Interpretation IMPRESSION: This is a normal awake and drowsy EEG. There is no evidence of focal slowing or epileptiform activity.
[2024-06-22 08:33] LABS: BUN Creatinine Ratio 26.3 (10-20); Calcium 9.2 mg/dl (8.6-10.3); Creatinine Clr Calc Pharmacy 30.3 ml/min; Potassium 4.1 mmol/L (3.5-5.1)
[2024-06-22] MEDS: amLODIPine BESYLATE 5 MG TAB PO SCH (09:03)
[2024-06-22 09:32] LABS: Basophils # (auto) 0.04 K/uL (0.00-0.20); Basophils % (auto) 0.8 %; Eosinophils # (auto) 0.19 K/uL (0.00-0.50); Eosinophils % (auto) 3.8 %; Hemoglobin 10.4 g/dl (12.0-16.0); Immature Granulocytes # (auto) 0.01 K/uL (0.01-0.20); Immature Granulocytes % (auto) 0.2 %; Lymphocytes % (auto) 24.2 %; Mean Corpuscular Hemoglobin 29.1 pg (25.0-34.0); Mean Corpuscular Hgb Conc 32.5 g/dL (32.0-36.0); Mean Corpuscular Volume 89.4 fL (80.0-100.0); Mean Platelet Volume 10.6 fL (9.4-12.4); Monocytes # (auto) 0.68 K/uL (0.11-0.59); Monocytes % (auto) 13.7 %; Neutrophils # (auto) 2.84 K/uL (1.40-6.50); Neutrophils % (auto) 57.3 %; Platelet Count 272 K/uL (130-400); RDW Coefficient of Variation 14.7 % (11.5-14.5); RDW Standard Deviation 48.5 fL (36.4-46.3); Red Blood Count 3.58 M/uL (4.20-5.40); White Blood Count 4.96 K/ul (4.8-10.8)
[2024-06-22 11:41] VITALS: PULSE 78; RESP 18; TEMP 97.7; O2SAT 99
--- NOTE | 2024-06-22 12:23 | Communication Note ---
Date of Service: June 22, 2024 EMR reviewed MRI brain without overt evidence of acute/causative pathology EEG appears unremarkable for evidence of epileptiform discharges and/or epilept ogenic focus Recommend proceed with Neurology recommendations and plan for continued follow up with adult neurology
--- NOTE | 2024-06-22 12:29 | Hospitalist Progress Note ---
Date of Service June 22, 2024 Assessment & Plan (1) Altered mental status: Plan: Altered mental status Likely metabolic encephalopathy secondary to UTI Strokelike symptoms DD: PRES Syncope likely due to concussion. R/O seizure --CT head:No evidence of established infarction, or intracranial or extracranial hemorrhage. Age-related brain involutional changes. Chronic microvascular ischemic changes. --Head CTA:Few eccentric non-stenotic calcified plaques are noted in the cavernous segments of both internal carotid arteries bilaterally. Otherwise, unremarkable study. No evidence of significant vascular abnormalities. --Neck CTA:Mild diffuse atherosclerotic changes. Eccentric, predominantly calcific atheromatous changes are seen in bilateral carotid bulbs with extension to the proximal cervical internal carotid artery on the left side, causing about 20-30% stenosis. --MRI brain:Mild age-related cerebral involutional changes were noted. Evidence of scattered white matter abnormal patchy signals were noted related to chronic ischemic changes related to small vessel disease. No evidence of acute intracranial pathology or abnormal contrast enhancement. --EEG:This is a normal awake and drowsy EEG. There is no evidence of focal slowing or epileptiform activity. --Lipid panel within normal limits. LDL 93 Continue aspirin Hold statin while hospitalized due to elevated CK Monitor for any arrhythmias Appreciate neurology input: Advised to repeat MRI, check EEG Continue Neuro Checks Will likely need ophthalmology evaluation eventually as outpatient PT recommends to return home Advised to follow-up with neurology on discharge Blood pressure better Plan to discharge home today Suspected UTI--ruled out Urine culture : Probable skin daria Empirically received IV Rocephin--received 3 doses Elevated CK levels Likely secondary to fall Monitor CK levels Hold statin for now CK levels improved Subclinical hypothyroidism Elevated TSH, normal free T4 Started on low-dose levothyroxine Will need repeat thyroid function test as outpatient Uncontrolled hypertension Increase lisinopril to 20 mg twice a day Increase amlodipine to 5 mg daily Hydralazine as needed Monitor BP Adjust medications as needed Hyperlipidemia Resume statin as able Peripheral vascular disease Mild coronary artery disease Continue aspirin, resume statin as able 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 Rx with Valtrex Renally adjusted Valtrex dose DVT Px: Heparin SQ CODE STATUS DNI/DNR Disposition Home Admission and Anticipated Discharge Date Admission Date: June 19, 2024 Subjective Patient is seen and examined at bedside Patient is doing a lot better today Headache resolved Left knee pain improved as well No new complaints Denies any chest pain, dizziness, nausea, vomiting, dyspnea Plan to be discharged home today Review of Systems Review of Systems: All systems reviewed & are unremarkable except as noted in Subjective Physical Exam Physical Exam: Physical Exam: Vitals signs as noted above General Appearance:Thin, frail, elderly, no apparent distress Head: normocephalic, Atraumatic Eyes: normal inspection, EOMI, left visual deficit Neck: supple, Trachea midline Respiratory/Chest: Normal breath sounds, CTA, No accessory muscle use Cardiovascular: S1, S2, No murmur Abdomen/GI:Soft, Non tender, Bowel sounds present Extremities/Musculoskeletal:normal inspection, no edema Neurologic/Psych:AAOX3, grossly no focal neurological deficits Skin: normal color, warm Results & Data Results & Data Vital Signs (Past 12 Hours) Vital Signs Temp Pulse Pulse Resp BP BP Pulse Ox 06/22/24 11:40 36.5 C 78 18 153/77 H 99 06/22/24 08:00 06/22/24 07:00 70 06/22/24 04:22 36.7 C 78 20 160/84 H 98 O2 Del Method 06/22/24 11:40 Room Air 06/22/24 08:00 Room Air 06/22/24 07:00 06/22/24 04:22 Room Air Laboratory Results Short CBC 06/22/24 Range/Units 07:14 WBC 4.96 (4.8-10.8) K/ul Hgb 10.4 L (12.0-16.0) g/dl Hct 32.0 L (37.0-47.0) % Plt Count 272 (130-400) K/uL BMP 06/22/24 07:14 Sodium 141 Potassium 4.1 Chloride 106 Carbon Dioxide 29 BUN 21 Creatinine 0.80 Glucose 83 Calcium 9.2
--- NOTE | 2024-06-22 12:39 | Discharge Summary ---
Date of Service June 22, 2024 Admission HPI Per Admitting Provider History obtained from patient, family, and records. Medical history significant for hypertension, hyperlipidemia, PVD, recurrent shingles on chronic suppression Rx, osteoporosis. Patient not feeling well since last week. Feeling tired. Achy right-sided headache symptoms. Denies chest pain, SOB, cough symptoms, abdominal pain, dysuria symptoms. No unusual weight loss. Patient noted to be acting strangely 2 days ago by partner. Slow to respond to questions over the phone. Patient moving differently at home as per partner. Unwitnessed syncopal event 2 days ago. Patient just felt like she was going to pass out prior to episode. Small bleeding wound on the chin. Patient partner rushed to find her somewhat staring blankly. No tongue biting or incontinence symptoms. Patient denies chest pain, SOB. Overnight confinement at at [facility] from 06/17-2023. Patient partner noticed patient not seeing well on the left side of her left eye. Vision on the left eye has not always been good due to shingles affecting the left side of her face as per patient. Left visual field cut, left-sided homonymous hemianopsia on exam as per provider note. Unremarkable blood work except for glucose of 190. Normal ESR. Orthostatic vitals negative. Patient admitted for syncope/stroke workup. CT head: No acute intracranial abnormality identified. Chronic white matter changes are nonspecific, stable, common for age. Mild volume loss. Incidental note of empty sella Intracranial calcific plaque carotid circulation, moderate plaque burden. CT cervical spine: No acute compression deformity or fracture of the spine. No gross malalignment to suggest ligamentous injury. Degenerative spondylolisthesis C4-C5. CT angio head/neck: Widely patent intracranial circulation with persistent bilateral circulation, normal variant, and mild-moderate plaque burden in the carotid segments without stenosis. Patent cervical circulation without hemodynamic stenosis. Plaque at carotid bifurcations bilaterally, approximately 25% stenosis left ICA, 30% stenosis right ECA without other stenosis evident. MRI brain with and without contrast: No sign of infarction or mass lesion. Cerebral atrophy and chronic small vessel ischemic disease TTE EF 60 to 65%, no valvular heart disease, no regional wall abnormalities. No further syncopal events during hospital course as per discharge summary. Patient with significant functional and ambulatory deficits related to visual field cut as per PT OT eval. Patient refused SNF/inpatient rehab. Patient subsequently discharged home. Patient instructed to continue home aspirin and statin Rx and follow-up with PCP in 1 week to evaluate visual field cut as per discharge note. Symptoms somewhat worse at home as per partner. Patient still not well. Patient with hesitation on moving around. 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 Left handed patient attempting to scoop food from a bowl with her left hand past the bowl. Later last night, patient seemed like she was talking to a friend on the phone without an actual phone at hand. Persistent right-sided headache. Patient still feels weak all over. Patient denies chest pain, SOB, abdominal/flank pain, hematuria. Medical History as above Surgical History : Cataract surgeries, breast mass excision, cholecystectomy, TAHBSO, BTL, tonsillectomy/adenoidectomy, D&C Family History : DM, heart disease Personal/Social history : Non-smoker, no EtOH intake, retired clerk manager Admission Exam Per Admitting Provider GENERAL: Comfortable, pleasant, no respiratory distress SKIN: Normal color, warm HEENT: [place] palpebral conjunctivae, no ptosis, dry buccal mucosa NECK : Supple, no tenderness CHEST : CTA, no tenderness HEART : RRR, no obvious murmurs ABDOMEN: Some distention, nontender EXTREMITIES : No LE swelling/tenderness, no other conspicuous deformities noted NEUROLOGIC : Coherent, difficulty on counting fingers on left temporal side on confrontation testing (some degree of inattention noted during exam), no facial asymmetry, MMTS BUE/BLE 4/5, gait and stance not assessed Principal Diagnosis Uncontrolled hypertension Acute metabolic encephalopathy Strokelike symptoms Suspected UTI Subclinical hypothyroidism Discharge Data Allergies Allergy/AdvReac Type Severity Reaction Status Date / Time latex Allergy Rash Verified 06/19/24 05:13 Consultations 06/19/24 05:23 ED Decision to Admit Stat 06/19/24 06:05 Consult Neurology Routine Procedures Performed Short CBC 06/22/24 Range/Units 07:14 WBC 4.96 (4.8-10.8) K/ul Hgb 10.4 L (12.0-16.0) g/dl Hct 32.0 L (37.0-47.0) % Plt Count 272 (130-400) K/uL BMP 06/22/24 07:14 Sodium 141 Potassium 4.1 Chloride 106 Carbon Dioxide 29 BUN 21 Creatinine 0.80 Glucose 83 Calcium 9.2 Ordered Studies 06/19/24 00:59 CT angio head w con Stat CT angio neck with con Stat CT head/brain wo con Stat 06/19/24 10:27 MRI Brain [MR brain wo/w con] Urgent Hospital Course (1) Altered mental status: Altered mental status Likely metabolic encephalopathy secondary to UTI Strokelike symptoms DD: PRES Syncope likely due to concussion. R/O seizure --CT head:No evidence of established infarction, or intracranial or extracranial hemorrhage. Age-related brain involutional changes. Chronic microvascular ischemic changes. --Head CTA:Few eccentric non-stenotic calcified plaques are noted in the cavernous segments of both internal carotid arteries bilaterally. Otherwise, unremarkable study. No evidence of significant vascular abnormalities. --Neck CTA:Mild diffuse atherosclerotic changes. Eccentric, predominantly calcific atheromatous changes are seen in bilateral carotid bulbs with extension to the proximal cervical internal carotid artery on the left side, causing about 20-30% stenosis. --MRI brain:Mild age-related cerebral involutional changes were noted. Evidence of scattered white matter abnormal patchy signals were noted related to chronic ischemic changes related to small vessel disease. No evidence of acute intracranial pathology or abnormal contrast enhancement. --EEG:This is a normal awake and drowsy EEG. There is no evidence of focal slowing or epileptiform activity. --Lipid panel within normal limits. LDL 93 Continue aspirin Hold statin while hospitalized due to elevated CK Monitor for any arrhythmias Appreciate neurology input: Advised to repeat MRI, check EEG Continue Neuro Checks Will likely need ophthalmology evaluation eventually as outpatient PT recommends to return home Advised to follow-up with neurology on discharge Blood pressure better Plan to discharge home today Suspected UTI--ruled out Urine culture : Probable skin daria Empirically received IV Rocephin--received 3 doses Elevated CK levels Likely secondary to fall Monitor CK levels Hold statin for now CK levels improved Subclinical hypothyroidism Elevated TSH, normal free T4 Started on low-dose levothyroxine Will need repeat thyroid function test as outpatient Uncontrolled hypertension Increase lisinopril to 20 mg twice a day Increase amlodipine to 5 mg daily Hydralazine as needed Monitor BP Adjust medications as needed Hyperlipidemia Resume statin as able Peripheral vascular disease Mild coronary artery disease Continue aspirin, resume statin as able 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 Rx with Valtrex Renally adjusted Valtrex dose DVT Px: Heparin SQ CODE STATUS DNI/DNR Disposition Home Total Time Total Time Spent Total Time Spent (In Minutes): 44 minutes Discharge Plan Discharge Items Patient Disposition: Home - Self-Care Reason For Visit: COMP UTI, AMS Discharge Diagnosis: Uncontrolled hypertension Acute metabolic encephalopathy Strokelike symptoms Suspected UTI Subclinical hypothyroidism Activity: Per Instructions section Exercise/Sports: Gradually increase as tolerated Non-emergency contact: Primary Care Provider and Neurologist Call non-emergency contact if: you have any medication questions, your symptoms worsen, your pain is concerning for you and you have a fever Follow-up/Referrals: Favian Lopez MD [Primary Care Provider] - Diet: Heart Healthy Addtl Attending Provider Instructions: Follow-up with your primary care physician Dr. Lopez in 1 week as advised Follow-up with your neurologist in 2 to 3 weeks. Consider following with their tip finisher for further evaluation of your eye. --Monitor your blood pressure regularly as advised. Discuss with your physician for further adjustment of medications as needed. -- Start taking lisinopril 20 mg twice a day for better control of your blood pressure --You are also started on amlodipine 5 mg daily for blood pressure control --Your Valtrex dose is decreased to 500 mg daily based on your renal function. Discussed with your physician for further adjustment as needed. -- Get blood test (thyroid function test--TSH, free T4) in 4 weeks and discussed with your physician for further adjustment of medications as needed. Seek immediate medical attention if your symptoms reoccur or worsen Please take all medications as instructed on discharge list below. Please call if you have any questions or problems. You can reach a [facility] hospitalist on duty at [facility] 24 hours a day by calling [phone] Addtl Greenhouse Assistant Provider Instructions: Risk Factors for Stroke: You can reduce your chances of stroke by working with your medical provider to adopt a healthy lifestyle. Some specific ways to lower your chance of stroke are: * If you are a smoker, now is the time to stop smoking cigarettes * If you are diabetic, improve the control of your blood sugars * Avoid excessive amounts of alcohol * Control high blood pressure * Lose weight if you are overweight * Be sure to lead an active lifestyle * Eat a healthy diet low in salt, cholesterol and fat You should know about other risk factors for stroke that you are unable to control. These include: * Age 55 years or older * Male gender * Certain racial groups: , or / * Family History of Stroke, Mini stroke or Heart Attack * Sickle Cell Disease Follow Up: It is important for you to keep your follow up appointments with your medical provider. Who to Call and When: Medical Emergencies: Call 911 immediately if you experience any of the following warning signs and symptoms of Stroke: * Sudden numbness or weakness of the face, arm or leg, especially on one side of the body * Sudden confusion, trouble speaking or understanding * Sudden trouble seeing in one or both eyes * Sudden trouble walking, dizziness, loss of balance or coordination * Sudden severe headache with no cause Do not delay calling 911 if you experience any warning signs or symptoms of a stroke. Delay in seeking medical attention may affect what treatments can be given to you. . Pending Studies at Discharge: No Stand-Alone Forms: My [facility] Ammado, Smoking Cessation Medications and DC Order Prescriptions: New amlodipine [Norvasc] 5 mg Tablet 5 mg PO QAM Qty: 30 1RF levothyroxine [Synthroid] 25 mcg Tablet 25 mcg PO DAILYBB Qty: 30 0RF Continued simvastatin 10 mg Tablet 10 mg PO PM ascorbic acid (vitamin C) 500 mg Tablet,Chewable 500 mg PO DAILY furosemide 20 mg Tablet 20 mg PO DAILY PRN (Reason: swelling) denosumab 60 mg/mL Syringe See Rx Instructions .ROUTE .COMPLEX Rx Instructions: mg subcutaneously aspirin 81 mg Tablet,Delayed Release (Dr/Ec) 81 mg PO DAILY lisinopril 20 mg Tablet 20 mg PO BID Qty: 60 0RF Changed valacyclovir 500 mg Tablet 500 mg PO DAILY Qty: 0 0RF Discharge Orders: Discharge Order (Routine); Ordered 06/22/24 Ordered By: Charles Cohen Admission Data Admit Date/Time: 06/19/24 06:05 Attending Provider: Charles Cohen Admit Provider: Moe Eugene Primary Care Provider: Favian Lopez Other Providers: Moe Eugene; Esperanza Purdy; Josue Cobian; Esperanza Orellana; Charbel Lopez; Kyle Balderrama; Jaylan Gordon; Gian Garcia; Loan Peralta; Jorge Brandt; Glen Bob; Silvia Silva; Daryl Lancaster; Sofia Rob; Angeline Acharya; Gian Olivera; Madeline Cunningham
[2024-06-22 12:49] VITALS: BP 160/84
--- NOTE | 2024-06-24 06:47 | Coding Query ---
CODING QUERY To promote full compliance with coding requirements relating to patient care, provider participation is requested in all cases of patent leather sorter uncertainty. Please assist us with the question(s) below: Coding Question(s): Pt admitted s/p fall for evaluation of stroke/syncope. Neuro consulted , stroke ruled out. Discharge Summary documented UTI as the etiology of the Metabolic Encephalopathy, however further in DS it was mentioned that UTI was ruled out d/t presence of skin daria. Please check below the phrase that describes the UTI. IV Rocephin was given for 3 days. Thanks for your help! Shaheed Alvarez DENIER CONTROL OPERATOR [facility] Physician's Response(s): UTI was diagnosed/treated during this inpatient stay __x___ UTI was ruled out Other: please document: Principal Diagnosis: "that condition established after study, to be chiefly responsible for occasioning the admission of the patient to the hospital for care." Co-Existing Principal Diagnosis: "when two or more diagnoses equally meet the criteria for principal diagnosis as determined by the circumstances of admission, diagnostic work up, and/or therapy provided, and the Alphabetic Index, Tabular List, or another coding guideline does not provide sequencing direction, any one of the diagnoses may be sequenced first." "When the physician has documented what appears to be a current diagnosis in the body of the record, but has not included the diagnosis in the final diagnostic statement, the physician should be asked whether the diagnosis should be added." (Source Coding Clinic 2 QTR90. p3-4) LENNY
--- NOTE | 2024-06-24 06:51 | Coding Query ---
CODING QUERY To promote full compliance with coding requirements relating to patient care, provider participation is requested in all cases of prototype carpenter uncertainty. Please assist us with the question(s) below: Coding Question(s): Pt admitted for stroke/syncope workup . Neuro consulted, no stroke. Documentation in the Discharge Summary and progress notes mention Metabolic Encephalopathy . Please document, if known or suspected, the etiology of the metabolic encephalopathy. ( Per Discharge Summary UTI was ruled out) . Thanks for your help. Shaheed Alvarez [facility] Physician's Response(s): Delirium and or Narcotic pain medications causing transient confusion Principal Diagnosis: "that condition established after study, to be chiefly responsible for occasioning the admission of the patient to the hospital for care." Co-Existing Principal Diagnosis: "when two or more diagnoses equally meet the criteria for principal diagnosis as determined by the circumstances of admission, diagnostic work up, and/or therapy provided, and the Alphabetic Index, Tabular List, or another coding guideline does not provide sequencing direction, any one of the diagnoses may be sequenced first." "When the physician has documented what appears to be a current diagnosis in the body of the record, but has not included the diagnosis in the final diagnostic statement, the physician should be asked whether the diagnosis should be added." (Source Coding Clinic 2 QTR90. p3-4) ÁLVAROD
== END 2024-06-22 14:20 | disposition home or self-care (01) | DRG 92 ==
LOC: ED 00:36 → INTOOBSV 06:05 → 2W 06:05